=== PATIENT | male | born 1965 | race Caucasian/White ===

== ENCOUNTER → 2018-05-27 14:11 | Outpatient (CLI) | payer MEDICAID, SELFPAY | PROVIDERS: Family Provider Family Medicine; PCP Family Medicine; Visit Provider Family Medicine | DX: R10.9 Unspecified abdominal pain (principal) | CPT/HCPCS: 74019 ==

== ENCOUNTER 2018-08-28 12:11 | Emergency (ER) | payer MEDICAID, SELFPAY ==
[2018-08-28 12:13] VITALS: BP 154/104; PULSE 95; RESP 18; TEMP 37; O2SAT 97; BMI 30.1
--- NOTE | 2018-08-28 12:34 | CT_ITS ---
STUDY: CT ABDOMEN AND PELVIS WITHOUT CONTRAST REASON FOR EXAM: Male, 53 years old. Pain RADIATION DOSAGE (If Supplied By Facility): CTDIvol = ( 16.76 ) mGy, DLP = ( 938.18 ) mGycm TECHNIQUE: Transaxial images were obtained from the dome of the diaphragm to the symphysis pubis without oral contrast, and without intravenous contrast. Sagittal and coronal images were reconstructed. Individualized dose optimization techniques were used for this CT. COMPARISON: June 03, 2017. FINDINGS: Mild bilateral basilar atelectasis. The visualized portions of the heart are within normal limits. Normal liver. Normal gallbladder and extrahepatic biliary system. Normal spleen. Normal pancreas. Normal bilateral adrenal glands. Bilateral hydronephrosis.. Nonobstructive stones are noted up to 9 mm in the left kidney. Slightly prominent ureters without obstructive stone. Normal visualized stomach. Normal small intestine. Normal colon. The appendix is visualized and appears normal. Normal abdominal aorta. Normal inferior vena cava. Normal retroperitoneum. There is a suprapubic catheter extending into the urinary bladder with mild wall thickening. Small fatty umbilical hernia. Mild degenerative vertebral changes. CT/Abdomen/Pelvis without Cont IMPRESSION: Bilateral hydronephrosis. Nonobstructive stones of the left kidney. Slightly prominent ureters without shortness of stone. Suprapubic catheter in place. Mild wall thickening of the urinary bladder. Small fatty umbilical hernia. Electronically Signed: Florentino Wheatley DO at 14:21 EST Tel [phone], Service support ,
[2018-08-28] MEDS: 0.9% Normal Saline 1,000 ML 150 ML IV (12:47)
[2018-08-28 12:59] LABS: Absolute Lymphocyte Count 0.89 X10^3/ul (0.83-4.51); Absolute Neutrophil Count 5.8 X10^3/uL (2.0-7.7); Basophil# 0.02 X10^3/uL; Basophil% 0.3 % (0-1); Eosinophil# 0.09 X10^3/uL; Eosinophils% 1.2 % (0-5); Hematocrit 46.9 % (40-54); Hemoglobin 15.6 g/dl (13.0-16.5); Lymphocyte # 0.89 X10^3/ul (4.0); Lymphocyte % 11.6 % (19-41); Mean Corp Hgb Conc 33.3 g/gl (32-36); Mean Corpuscular Hgb 31.1 pg (27.0-32.0); Mean Corpuscular Volume 93.4 fL (80-94); Mean Platelet Vol. 9.7 fl (6.2-12.0); Monocyte# 0.86 X10^3/uL; Monocyte% 11.2 % (0-10); Neutrophil # 5.83 X10^3/uL (2.7-7.7); Neutrophil % 75.6 % (47-70); POSITIVE COUNT NO; POSITIVE DIFFERENTIAL NO; POSITIVE MORPHOLOGY NO; Platelet Count 199 K/mm3 (150-450); RBC Distribution Width CV 12.9 % (11.6-14.6); RBC Distribution Width SD 43.7 fl (35.1-43.9); Red Blood Count 5.02 M/mm3 (4.6-6.2); White Blood Count 7.7 K/mm3 (4.4-11.0)
[2018-08-28 13:03] LABS: Mucous, Urine 0 SEEN /hpf (<or=2+); Red Blood Cells-Urine 0 SEEN /hpf (0-5); Squamous Epithelial Cells - UA 0 SEEN /hpf (0-5)
[2018-08-28 13:09] LABS: Anion Gap 7 (5-15); BUN 11 mg/dL (7-18); BUN/Creat Ratio 7.7 RATIO (10-20); Calcium,Total 8.5 mg/dL (8.5-10.1); Chloride 104 mmol/L (98-107); Creatinine, Serum 1.42 mg/dL (0.70-1.30); EST Glomerular Filtration Rate 56 mL/min (>60); Est Glom Filt Rate - Afr Amer 67 mL/min (>60); Estimated Creatinine Clearance 62.83 ml/min; Glucose 68 mg/dL (74-106); Potassium 4.1 mmol/L (3.5-5.1); Sodium Level 140 mmol/L (136-145)
[2018-08-28 13:12] LABS: Color, Urine Yellow (Yellow); Glucose, Dipstick 50 mg/dl (Normal); Ketone-Dipstick Negative (Negative); Leukocyte Esterase-Dipstick 500 /ul (Negative); Nitrite-Dipstick Negative (Negative); Occult Blood-Urine 50 /ul (Negative); Protein-Dipstick 30 mg/dl (Negative); Specific Gravity, Urine 1.005 (1.002-1.030); Urine Bilirubin Dipstick Negative (Negative); Urine Clarity Sl. Cloudy (Clear); Urine Urobilinogen Normal (Normal)
[2018-08-28 13:13] LABS: Bacteria 2+ /hpf (None Seen); White Blood Cells 5-10 SEEN /hpf (0-5)
[2018-08-28 13:22] LABS: International Normalized Ratio 2.2; Prothrombin Time (Protime)PT. 24.2 SECONDS (11.7-14.9)
--- NOTE | 2018-08-28 15:05 | ED.VISSUMM ---
- ER Visit Summary Date of Service: 08/28/18 Chief Complaint: [Abdominal pain and pain to the penis] History of Present Illness: The patient is a 53 M [presents the emergency department with complaint of abdominal pain and pain in his penis that has had for months. Patient states that he sees a urologist in [place] and at some point was recommended to him that he have nephrostomy tubes placed in his kidney however being that he is on Coumadin for history of DVT they would have to stop the Coumadin for a time before the surgery. Patient tells me he has had intermittent discomfort in the suprapubic region for months and also complains of intermittent discomfort to the tip of his penis whenever urine drains from his bladder through the suprapubic catheter into his Stoddard bag. Patient not had any fevers. Patient is currently in a fci due to recent stroke.] Physical Examination: [RAJNI-GERALDINE, ALLYSONMI. Cranial nerves II through XII grossly intact. TMs clear. Mucous membranes moist. No adenopathy. Cardiovascular-regular rate and rhythm without murmur or ectopy Lungs-clear to auscultation, chest wall stable without crepitus or subcu emphysema Abdomen-normoactive bowel sounds, soft. Patient has tenderness palpation over the superpubic region that is mild. There is no rebound, rigidity, or perineal signs. Patient has a suprapubic catheter in place. 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 There is no drainage from the penis. There is no erythema or cellulitis noted. Testicles are nontender. There are no hernias palpated. Extremities-intact ?4, normal range of motion, normal pulses, atraumatic] Test Results: [CBC with differential obtained showed a white count of 7.7, hemoglobin 15.6, hematocrit 47, platelets 199. Chemistries unremarkable. BUN was 11 and creatinine 1.42. INR was 2.2. Urinalysis was positive for 500 diet esterase, 5-10 WBCs, +[address] flank showed bilateral hydronephrosis that is mild with multiple stones in the left kidney that are nonobstructive largest of which measures 9 mm.] Emergency Department Course and Treatment: [Patient was medicated with 4 mg of morphine initially and 4 mg of Zofran.] Treatment Plan: [Patient will be discharged back to [facility] with a recommendation to follow-up with urology] Disposition: [Discharged home in stable condition] Impression: [Abdominal pain Penile pain-etiology uncertain] This note was generated with [employer] dictation software. It may contain incorrect words, spelling, and punctuation that were not noted in review of the chart prior to signing ED Disposition - Plan for ED Patient: Chief Complaint: Complaint Referrals: Vasiliy Ramos MD [Primary Care Provider] -
[2018-08-28 15:08] VITALS: BP 150/100; PULSE 89; RESP 18; O2SAT 96
[2018-08-28] MEDS: Ondansetron 4 MG/2 ML Vial IV (15:09)
[2018-08-28] MEDS: Morphine 4 MG/ML Syringe IV (15:09)
--- NOTE | 2018-08-28 15:19 | ED.DCSUM_ITS ---
- ER Visit Summary Date of Service: 08/28/18 Chief Complaint: [Abdominal pain and pain to the penis] History of Present Illness: The patient is a 53 M [presents the emergency department with complaint of abdominal pain and pain in his penis that has had for months. Patient states that he sees a urologist in [place] and at some point was recommended to him that he have nephrostomy tubes placed in his kidney however being that he is on Coumadin for history of DVT they would have to stop the Coumadin for a time before the surgery. Patient tells me he has had intermittent discomfort in the suprapubic region for months and also complains of intermittent discomfort to the tip of his penis whenever urine drains from his bladder through the suprapubic catheter into his Stoddard bag. Patient not had any fevers. Patient is currently in a snf due to recent stroke.] Physical Examination: [RAJNI-GERALDNIE, ALLYSONMI. Cranial nerves II through XII grossly intact. TMs clear. Mucous membranes moist. No adenopathy. Cardiovascular-regular rate and rhythm without murmur or ectopy Lungs-clear to auscultation, chest wall stable without crepitus or subcu emphysema Abdomen-normoactive bowel sounds, soft. Patient has tenderness palpation over the superpubic region that is mild. There is no rebound, rigidity, or perineal signs. Patient has a suprapubic catheter in place. 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 There is no drainage from the penis. There is no erythema or cellulitis noted. Testicles are nontender. There are no hernias palpated. Extremities-intact ?4, normal range of motion, normal pulses, atraumatic] Test Results: [CBC with differential obtained showed a white count of 7.7, hemoglobin 15.6, hematocrit 47, platelets 199. Chemistries unremarkable. BUN was 11 and creatinine 1.42. INR was 2.2. Urinalysis was positive for 500 diet esterase, 5-10 WBCs, +[address] flank showed bilateral hydronephrosis that is mild with multiple stones in the left kidney that are nonobstructive largest of which measures 9 mm.] Emergency Department Course and Treatment: [Patient was medicated with 4 mg of morphine initially and 4 mg of Zofran.] Treatment Plan: [Patient will be discharged back to snf with a recommendation to follow-up with urology] Disposition: [Discharged home in stable condition] Impression: [Abdominal pain Penile pain-etiology uncertain] This note was generated with [employer] dictation software. It may contain incorrect words, spelling, and punctuation that were not noted in review of the chart prior to signing ED Disposition - Plan for ED Patient: Chief Complaint: Complaint Referrals: Vasiliy Ramos MD [Primary Care Provider] -
--- NOTE | 2018-08-28 15:19 | ED.DEP ---
ED Disposition - Plan for ED Patient: Chief Complaint: Complaint Instructions: Abdominal Pain Referrals: Vasiliy Ramos MD [Primary Care Provider] - Additional Instructions: See your Urologist
[2018-08-28 16:00] VITALS: PULSE 90; RESP 18
--- OUTSIDE RECORDS SUMMARY | 2018-10-22 20:11 | XMS RPT_ITS ---
:1965 Author Organization [place] Care Team Providers Name Role Phone ROSSY DAVID MD Attending Unavailable ROLF SCHRADER Primary Care Unavailable ROSSY DAVID MD Attending Unavailable ROLF SCHRADER Primary Care Unavailable Vasiliy Ramos Attending Unavailable Vasiliy Ramos Referring Unavailable Vasiliy Ramos Primary Care Unavailable Vasiliy Ramos Primary Care Unavailable Regina Jason Attending Unavailable PROBLEMS PROBLEMS DATE TYPE CONDITION / CODE ATTENDING STATUS SOURCE 05/27/2018 Unknown R10.9 - Vasiliy Ramos Active Leena Unspecified [facility] abdominal pain / Hospital R10.9(ICD-10) Repository PROCEDURES PROCEDURES No Procedure Records FoundRESULTS RESULTS DISCHARGE INSTRUCTION Observed: 08/28/2018 Status: F Source: LEENA 3:20 PM [facility] REPOSITORY [place] Medical Records Department [address] [place] [address] Discharge Instruction 08/28/18 1519 MR#: [id number] Acct: [id number] Name: LORIE CARVALHO Rep #: [id number] : 1965 53 From: Regina Jason DO PCP: Vasiliy Ramos MD Status: REG ER ED Disposition - Plan for ED Patient: Chief Complaint: Complaint Instructions: Abdominal Pain Referrals: Vasiliy Ramos MD [Primary Care Provider] - Additional Instructions: See your Urologist What to do if you have Problems For any increased pain, shortness of breath, bleeding, nausea or vomiting, chest pain, or any unexpected problems, contact your Primary Care Provider. Call [facility] ([phone]) or report to the closest Emergency Room. Call 911 if necessary. 08/28/18 1520 <Electronically signed by Regina Jason DO> Date Regina Jason DO Cosigner Signature (If Indicated): Date CC: Vasiliy Ramos MD EMERGENCY DEPARTMENT Observed: 08/28/2018 Status: F Source: VALENTINE SUMMARY 3:19 PM [facility] REPOSITORY [place] Medical Records Department [address] [place] [address] Emergency Department Summary 08/28/18 1505 MR#: [id number] Acct: [id number] Name: LORIE CARVALHO Rep #: [id number] : 1965 53 From: Regina Jason DO PCP: Vasiliy Ramos MD Status: REG ER - ER Visit Summary Date of Service: 08/28/18 Chief Complaint: [Abdominal pain and pain to the penis] History of Present Illness: The patient is a 53 M [presents the emergency department with complaint of abdominal pain and pain in his penis that has had for months. Patient states that he sees a urologist in [place] and at some point was recommended to him that he have nephrostomy tubes placed in his kidney however being that he is on Coumadin for history of DVT they would have to stop the Coumadin for a time before the surgery. Patient tells me he has had intermittent discomfort in the suprapubic region for months and also complains of intermittent discomfort to the tip of his penis whenever urine drains from his bladder through the suprapubic catheter into his Stoddard bag. Patient not had any fevers. Patient is currently in a alf due to recent stroke.] Physical Examination: [HEJAVIER-PERRLUIS, ALLYSONMI. Cranial nerves II through XII grossly intact. TMs clear. Mucous membranes moist. No adenopathy. Cardiovascular-regular rate and rhythm without murmur or ectopy Lungs-clear to auscultation, chest wall stable without crepitus or subcu emphysema Abdomen-normoactive bowel sounds, soft. Patient has tenderness palpation over the superpubic region that is mild. There is no rebound, rigidity, or perineal signs. Patient has a suprapubic catheter in place. 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 There is no drainage from the penis. There is no erythema or cellulitis noted. Testicles are nontender. There are no hernias palpated. Extremities-intact 4, normal range of motion, normal pulses, atraumatic] Test Results: [CBC with differential obtained showed a white count of 7.7, hemoglobin 15.6, hematocrit 47, platelets 199. Chemistries unremarkable. BUN was 11 and creatinine 1.42. INR was 2.2. Urinalysis was positive for 500 diet esterase, 5- 10 WBCs, +[address] flank showed bilateral hydronephrosis that is mild with multiple stones in the left kidney that are nonobstructive largest of which measures 9 mm.] Emergency Department Course and Treatment: [Patient was medicated with 4 mg of morphine initially and 4 mg of Zofran.] Treatment Plan: [Patient will be discharged back to alf with a recommendation to follow-up with urology] Disposition: [Discharged home in stable condition] Impression: [Abdominal pain Penile pain-etiology uncertain] This note was generated with Altia dictation software. It may contain incorrect words, spelling, and punctuation that were not noted in review of the chart prior to signing ED Disposition - Plan for ED Patient: Chief Complaint: Complaint Referrals: Vasiliy Ramos MD [Primary Care Provider] - What to do if you have Problems For any increased pain, shortness of breath, bleeding, nausea or vomiting, chest pain, or any unexpected problems, contact your Primary Care Provider. Call [facility] ([phone]) or report to the closest Emergency Room. Call 911 if necessary. 08/28/18 1519 <Electronically signed by Regina Jason DO> Date Regina Jason DO Cosigner Signature (If Indicated): Date CC: Vasiliy Ramos MD URINALYSIS, COMPLETE Collected: 08/28/2018 Status: F Source: VALENTINE 12:58 PM [facility] REPOSITORY Order Comment: How was Urine Obtained? Urine, Pedibag TYPE CODE TESTS RESULT OUT OF RANGE REFERENCE UNITS LAB L400.3000 Yellow COLOR Normal Yellow LAB L400.3050 Clear Normal CLARITY Sl. Cloudy LAB L400.3200 Normal mg/dl High 50 GLUCOSE, UR LAB L400.3300 Negative mg/dL Normal BILIRUBIN URINE Negative LAB L400.3400 Negative mg/dl Normal KETONE UR Negative LAB L400.3465 1.002-1.030 Normal SP.GR. DIPSTX 1.005 LAB L400.3550 5.0 - 8.0 pH UR Normal 7.0 LAB L400.3600 Negative mg/dl High PROT 30 DIPSTX LAB L400.3700 Normal mg/dl Normal UROBILI Normal LAB L400.3750 Negative Normal NITRITE UR Negative LAB L400.3780 Negative /ul High 50 OCCULT BLOOD-UR LAB L400.3800 Negative /ul High LEUK ESTERASE 500 LAB L400.4050 0-5 /hpf WBC Normal 5-10 SEEN LAB L400.4100 0-5 /hpf 0 Normal RBC-UA SEEN LAB L400.4150 0-5 /hpf SQUAM 0 Normal EPI SEEN LAB L400.4300 None Seen /hpf 2+ Normal BACTERIA LAB L400.4350 <or=2+ /hpf 0 Normal MUCUS, URINE SEEN Performed By: #### L400.0001 #### [facility] [address] [place], [address] Observed: 08/28/2018 Status: F Source: VALENTINE CULTURE, URINE 12:58 PM [facility] REPOSITORY Urine Culture ORGANISM 1: Klebsiella oxytoca [place] Count 25,000-50,000 ORGANISM 2: Citrobacter freundii [place] Count 25,000-50,000 ORGANISM 3: Escherichia coli [place] Count 11,000-25,000 Klebsiella oxytoca: REACTION Amoxacillin/Clavulanic Acid $ <=2 S Ampicillin $ >=32 R Ampicillin/Sulbactam $ 8 S Cefazolin $ <=4 S Cefepime $ <=1 S Ceftriaxone $ <=1 S Ciprofloxacin $ <=0.25 S ESBL - Ertapenim $$$ <=0.5 S Gentamicin $ <=1 S Imipenem *NF <=0.25 S Levofloxacin $ <=0.12 S Nitrofurantoin $ 32 S Piperacillin/Tazobactam $$ <=4 S Tobramycin $ <=1 S Trimethoprim/Sulfametho $ <=20 S (NF) indicates non-formulary drug at [facility]. Approval by Infectious Disease Specialist required before non-formulary drugs may be ordered and/or dispensed. Citrobacter freundii: REACTION Amoxacillin/Clavulanic Acid $ 4 R Cefazolin $ >=64 R Cefepime $ <=1 S Ceftriaxone $ <=1 S Ciprofloxacin $ 2 I Ertapenim $$$ <=0.5 S Gentamicin $ >=16 R Imipenem *NF 0.5 S Levofloxacin $ 1 S Nitrofurantoin $ <=16 S Tobramycin $ 8 I Trimethoprim/Sulfametho $ >=320 R (NF) indicates non-formulary drug at [facility]. Approval by Infectious Disease Specialist required before non-formulary drugs may be ordered and/or dispensed. Escherichia coli: REACTION Amoxacillin/Clavulanic Acid $ 16 I Ampicillin $ >=32 R Ampicillin/Sulbactam $ >=32 R Cefazolin $ <=4 S Cefepime $ <=1 S Ceftriaxone $ <=1 S Ciprofloxacin $ <=0.25 S ESBL - Ertapenim $$$ <=0.5 S Gentamicin $ >=16 R Imipenem *NF <=0.25 S Levofloxacin $ 1 S Nitrofurantoin $ <=16 S Piperacillin/Tazobactam $$ <=4 S Tobramycin $ 8 I Trimethoprim/Sulfametho $ <=20 S (NF) indicates non-formulary drug at [facility]. Approval by Infectious Disease Specialist required before non-formulary drugs may be ordered and/or dispensed. Performed By: #### M100.0650 #### [facility] [place], [address] CBC W/DIFF, AUTOMATED Collected: 08/28/2018 Status: F Source: VALENTINE 12:45 PM [facility] REPOSITORY TYPE CODE TESTS RESULT OUT OF RANGE REFERENCE UNITS LAB L100.1000 4.4-11.0 K/mm3 Normal WBC 7.7 LAB L100.1200 4.6-6.2 M/mm3 Normal RBC 5.02 LAB L100.1300 13.0-16.5 g/dl Normal HGB 15.6 LAB L100.1400 40-54 % Normal HCT 46.9 LAB L100.1500 80-94 fL Normal MCV 93.4 LAB L100.1600 27.0-32.0 pg Normal MCH 31.1 LAB L100.1700 32-36 g/gl Normal MCHC 33.3 LAB L100.1810 11.6-14.6 % Normal RDW CV 12.9 LAB L100.1820 35.1-43.9 fl Normal RDW SD 43.7 LAB L100.1900 150-450 K/mm3 Normal PLT 199 LAB L100.2000 6.2-12.0 fl Normal MPV 9.7 LAB L100.2100 47-70 % High NEUT% 75.6 LAB L100.2200 19-41 % Low LY% 11.6 LAB L100.2300 0-10 % High MONO% 11.2 LAB L100.2400 0-5 % Normal EO% 1.2 LAB L100.2500 0-1 % Normal BASO% 0.3 LAB L100.2550 0.0-0.9 % Normal IM GRAN % 0.100 Result Comment: IG% - Immature Granulocytes (promyelocytes, myelocytes and metamyelocytes) > 1% indicates that a LEFT SHIFT is Present. LAB L100.2620 2.0-7.7 X10 3/uL Normal Absolute Neut 5.8 LAB L100.2720 0.83-4.51 X10 3/ul Normal Absolute Lymph 0.89 Performed By: #### L100.0100 #### [facility] [address] [place], [place], [address] BASIC METABOLIC Collected: 08/28/2018 Status: F Source: VALENTINE PROFILE (BMP) 12:45 PM [facility] REPOSITORY TYPE CODE TESTS RESULT OUT OF RANGE REFERENCE UNITS LAB L501.0100 74-106 mg/dL Low GLU 68 Result Comment: Please note revised GLUCOSE reference range effective 2017. LAB L501.1000 7-18 mg/dL Normal BUN 11 LAB L501.1100 0.70-1.30 mg/dL High CREAT,SERUM 1.42 Result Comment: The validity of the calculated GFR AND GFRAA in patients over 70 years has not been determined. Clinical correlation is essential. LAB L501.1110 >60 mL/min Low EST GFR 56 Result Comment: Non- GFR Calc LAB L501.1115 >60 mL/min Normal EST GFR - AA 67 Result Comment: GFR Calc LAB L501.1255 ml/min Normal Estimated CRCL 62.83 LAB L501.1300 10-20 RATIO Low BUN/CRE 7.7 LAB L501.2200 8.5-10 mg/dL Normal .1 CA 8.5 LAB L501.5300 136-14 mmol/L Normal 5 NA 140 LAB L501.5600 3.5-5. mmol/L Normal 1 K 4.1 Result Comment: Moderate Hemolysis, Result may be falsely increased. LAB L501.5900 98-107 mmol/L Normal CL 104 LAB L501.6100 21.0-32.0 mmol/L Normal CO2 29.0 LAB L501.6200 5-15 Normal 7 GAP Performed By: #### L500.2500 #### [facility] [address] [place], [address] PROTHROMBIN TIME W/INR Collected: 08/28/2018 Status: F Source: VALENTINE 12:45 PM [facility] REPOSITORY TYPE CODE TESTS RESULT OUT OF RANGE REFERENCE UNITS LAB L300.4150 11.7-14.9 SECONDS High PROTIME 24.2 LAB L300.4200 Normal INR 2.2 Performed By: #### L300.3900 #### [facility] [address] [place], [address] ABDOMEN/PELVIS WITHOUT Observed: 08/28/2018 Status: F Source: LEENA CONT 12:35 PM [facility] REPOSITORY [place] Imaging Services [address] [place] [address] Abdomen/Pelvis without Cont MR#: [id number] Acct: [id number] Name: LORIE CARVALHO Rep #: [id number] : 1965 M 53 From: Florentino Wheatley DO PCP: Vasiliy Ramos MD Status: REG ER Study: Abdomen/Pelvis without Cont Date of Exam: 08/28/18 Exam# [id number] Ordering Dr: Regina Jason DO STUDY: CT ABDOMEN AND PELVIS WITHOUT CONTRAST REASON FOR EXAM: Male, 53 years old. Pain RADIATION DOSAGE (If Supplied By Facility): CTDIvol = ( 16.76 ) mGy, DLP = ( 938.18 ) mGycm TECHNIQUE: Transaxial images were obtained from the dome of the diaphragm to the symphysis pubis without oral contrast, and without intravenous contrast. Sagittal and coronal images were reconstructed. Individualized dose optimization techniques were used for this CT. COMPARISON: June 03, 2017. FINDINGS: Mild bilateral basilar atelectasis. The visualized portions of the heart are within normal limits. Normal liver. Normal gallbladder and extrahepatic biliary system. Normal spleen. Normal pancreas. Normal bilateral adrenal glands. Bilateral hydronephrosis.. Nonobstructive stones are noted up to 9 mm in the left kidney. Slightly prominent ureters without obstructive stone. Normal visualized stomach. Normal small intestine. Normal colon. The appendix is visualized and appears normal. Normal abdominal aorta. Normal inferior vena cava. Normal retroperitoneum. There is a suprapubic catheter extending into the urinary bladder with mild wall thickening. Small fatty umbilical hernia. Mild degenerative vertebral changes. CT/Abdomen/Pelvis without Cont IMPRESSION: Bilateral hydronephrosis. Nonobstructive stones of the left kidney. Slightly prominent ureters without shortness of stone. Suprapubic catheter in place. Mild wall thickening of the urinary bladder. Small fatty umbilical hernia. Electronically Signed: Florentino Wheatley DO at 14:21 EST Tel [phone], Service support , CC: Vasiliy Ramos MD; Regina Jason DO Survey Engineer: Signed XR ABDOMEN AP Observed: 08/02/2018 Status: F Source: Heavy 8:00 AM [facility] REPOSITORY ORIGINAL Supine abdomen one view HISTORY: Follow-up kidney stone COMPARISON: CT scan 07/15/2018 No definite RIGHT nephrolithiasis is present. There is left- sided nephrolithiasis. A 2 mm stone is present at the LEFT upper pole and at the LEFT lower pole there is a 3 mm stone. There is an oval calci fication measuring 12 mm in maximum dimension probably at the LEFT ureteropelvic junction. No other urinary tract calcification is evident. Interpreted By: Mansoor Reynolds MD Preliminary Report By: Mansoor Reynolds MD Electronically Signed By: Mansoor Reynolds MD Dictated Date: 08/02/2018 8:37:05 AM Prelim Date: 08/02/2018 8:37:05 AM Sign Date: 08/02/2018 8:38:[address] ABDOMEN/PELVIS W/O Observed: 07/15/2018 Status: F Source: PIERRE CONTRAST 11:00 AM [facility] REPOSITORY ORIGINAL CT ABDOMEN/PELVIS W/O CONTRAST CLINICAL STATEMENT: HX OF KIDNEY STONES, UROSTOMY COMPARISON: None FINDINGS:Today's examination was performed a noncontrast enhanced CT of the abdomen and pelvis. There are no prior imaging studies available for comparison. Minimal inclusion of the posterior lung bases is noncontributory. There is patchy atelectasis along the lung bases bilaterally particularly along the dome of the RIGHT hemidiaphragm. Liver and spleen are unremarkable. The pancreas demonstrates no contributory findings. Gallbladder is present. The adrenal glands are unremarkable. There are intrarenal calculi present on the LEFT. There is also, a large ureteropelvic junction calcification on the LEFT measuring 1 cm in AP diameter. There is asymmetric atrophic change to the LEFT kidney. Both kidneys demonstrate lobulated contours with possible small cortical cystic changes in addition to a large pos terior RIGHT cortical cyst which measures 4.6 cm. No pathologically enlarged upper abdominal lymph nodes are noted. There is no retroperitoneal adenopathy. A few scattered retroperitoneal lymph nodes not pathologically enlarged by CT criteria are noted . The inferior vena cava is abnormal. There is a relatively unremarkable appearing proximal inferior vena cava at the level of the liver which becomes quite small and somewhat tortuous at the level of t he renal veins. Distal to the renal veins, there is no normal appearing inferior vena cava. The confluence of the renal veins is contiguous with a small retroperitoneal venous structure resulting from t he union of the common iliac veins posterior to the RIGHT common iliac artery on image 68. In a cephalad fashion, surrounding small collateral venous structures are present. This small confluence of the common iliac veins unites with the confluence of the renal veins on image 38. This likely represents a chronic obstruction or developmental anomaly. There are some venous collateral vessels present in the subcutaneous tissues likely as a result of this finding. No disproportionate bowel dilatation to suggest a focal obstruction is identified. In the pelvis, a suprapubic catheter with collapse of the bladder is noted. No pelvic adenopathy is confirmed. There is no free fluid in the pelvis. The osseous structures demonstrate no acute contributory findings. There are diffuse degenerative changes present. IMPRESSION: 1. LEFT intrarenal calculi and ureteral pelvic junction calculus. Long-standing obstruction at the ureteropelvic junction is suspected with associated atrophic change to the LEFT kidney. 2. Incidental findings as detailed above. This includes abnormalities related to the venous structures of the abdomen specifically the inferior vena cava and renal veins. This exam was performed according to our departmental dose optimization program, and includes the following measures where applicable: automated exposure control, adjustment of the mAs and/or kVp accord ing to patient size and/or exam, and an iterative reconstruction algorithm. Interpreted By: Dariana Fagan MD Preliminary Report By: Dariana Fagan MD Electronically Signed By: Dariana Fagan MD Dictated Date: 07/15/2018 11:13:30 AM Prelim Date: 07/15/2018 11:13:30 AM Sign Date: 07/15/2018 11:35:02 AM JUANA JOHNSON DECLARRY Observed: 05/27/2018 Status: F Source: LEENA AND/OR ERECT 2:17 PM [facility] [place] Imaging Services [address] [place] [address] Abd Inc Decub and/or Erect MR#: [id number] Acct: [id number] Name: LORIE CARVALHO Rep #: [id number] : 1965 M 52 From: Warren Moctezuma MD PCP: Vasiliy Ramos MD Status: REG CLI Study: Abd Inc Decub and/or Erect Date of Exam: 05/27/18 Exam# [id number] Ordering Dr: Vasiliy Ramos MD STUDY: X-RAY - ABDOMEN/PELVIS REASON FOR EXAM: Male, 52 years old. Abdominal pain and bloating. Patient states he is retaining fluid. TECHNIQUE: AP supine and upright views of the abdomen and pelvis on 4 films. COMPARISON: Noncontrast CT abdomen and pelvis June 03, 2017 FINDINGS: There is minor subsegmental atelectasis in the inferior left base of the diaphragm. There is an unremarkable bowel gas pattern. There is no demonstrated free abdominal air. Left nephrolithiasis again noted. The largest stone, measuring nearly 1 cm in greatest diameter, now projects near the expected position of the left ureteropelvic junction. The visualized liver and spleen are grossly normal in size and morphology. Normal soft tissue structures. Normal visualized osseous structures. RAD/Abd Inc Decub and/or Erect IMPRESSION: 1. Left nephrolithiasis. The largest stone now projects at the expected position of the left ureteropelvic junction. 2. Nonspecific bowel gas pattern. No free gas. Electronically Signed: Arash Moctezuma MD at 21:51 EDT , Service support , CC: Vasiliy Ramos MD Survey Engineer: Signed ALLERGIES ALLERGIES DATE TYPE / CODE NAME / CODE REACTION SEVERITY SOURCE 08/28/2018 Drug No Known Unknown [facility] Allergy/4160 Allergies/F00 Hospital 47925(SNOMED 7007799(RXNOR Repository CT) M) ENCOUNTERS ENCOUNTERS ADMIT/DISCHARGE ACCOUNT NUMBER ADMITTING ENCOUNTER LOCATION SOURCE CLASS 08/28/2018/08/28/20 [id number] Emergency [address] ding:ED Repository 08/02/2018/08/02/20 [id number] Ambulatory [place] [address] ing:[facility] Repository 07/15/2018/07/15/20 [id number] Ambulatory [address] ding:[facility] Repository 05/27/[id number] [facility] ding:MTRAD Repository PAYERS PAYERS ENCOUNTER GUARANTOR PAYER SUBSCRIBER SOURCE 08/28/2018 [facility] [id number] Insurance[facility] Number: [id number] [id number] Repository [address]Tez: Date:2018-08-28 () 08/28/2018 [facility]SELF [facility] Number: Effective Repository Date:2018-08-28 08/02/2018 [facility] DICKENDOB: Insurance:MEDICAID OF [facility]: [facility] [id number] Repository [facility] Number: [address] [place], [place] [id number] [place], [place] [address]Dxc: (303) Date:2018-07-28 [id number]: () [id number] [phone] Name:MIGUEL Meadows ()Tel: [phone], [place] [phone] () [phone]: 07/15/2018 [facility] DICKENDOB: Insurance:MEDICAID OF DICKENDOB: [facility] Number: [id number] Repository [facility] [id number] [address] [place], [place] Date:2018-07-08 - [facility], [place] [address]Gog: [phone] [phone]: Name:MIGUEL Meadows [id number] ()Tel: [phone], [place] (HP) (WP) [phone]: [phone] 05/27/2018 LORIE D Primary [id number] Insurance:MEDICAIDPol DICKENDOB: [facility] BLANCAVDAPT icy Number: [id number] [id number] Repository [address]Zhc: Date:2018-05-27 () 05/27/2018 Secondary NOT GIVENNATHANIEL [address] Insurance:SELF PAY [facility] Number: Effective Repository Date:2018-05-27
== END 2018-08-28 16:01 | disposition home or self-care (01) ==
PROVIDERS: Emergency Provider Emergency Medicine; Family Provider Family Medicine; PCP Family Medicine
DX: R10.30 Lower abdominal pain, unspecified (principal); N48.89 Other specified disorders of penis; I10 Essential (primary) hypertension; Z86.718 Personal history of other venous thrombosis and embolism; Z86.73 Personal history of transient ischemic attack (TIA), and cerebral infarction without residual deficits; Z87.442 Personal history of urinary calculi; Z79.01 Long term (current) use of anticoagulants; Z79.51 Long term (current) use of inhaled steroids; Z79.891 Long term (current) use of opiate analgesic; Z79.899 Other long term (current) drug therapy
CPT/HCPCS: 74176; 80048; 81001; 85025; 85610; 87077; 87086; 87088; 87186; 96361; 96374; 96375; 99284; J7030; J2405

== ENCOUNTER → 2018-10-04 10:46 | Outpatient (CLI) | payer MEDICAID, SELFPAY ==
--- NOTE | 2018-10-04 10:49 | ART_ITS ---
Reason For Study: Ulcer Left Segmental Pressures Left brachial= 126mmHg. Left posterior tibial artery = 149mmHg. Left dorsalis pedis artery = 145mmHg. The left dorsalis pedis waveforms are triphasic. The left posterior tibial artery waveforms are triphasic. Right Segmental Pressures Right brachial= 119mmHg. Right posterior tibial artery = 145mmHg. Right dorsalis pedis artery = 143mmHg. The right dorsalis pedis waveforms are triphasic. The right posterior tibial artery waveforms are triphasic. Indices The right ankle brachial index by the dorsalis pedis is 1.1. The right ankle brachial index by the posterior tibial artery is 1.2. The left ankle brachial index by the dorsalis pedis is 1.2. The left ankle brachial index by the posterior tibial artery is 1.2. Interpretation Summary Triphasic waveforms are noted at ankle level bilaterally. Resting ankle-brachial indices appear bilaterally normal. There is no evidence of significant arterial occlusive disease. Ordering Physician: Vasiliy Ramos Referring Physician: Vasiliy Ramos Performed By: Stephanie Aguilar RVT
== END ==
PROVIDERS: Family Provider Family Medicine; PCP Family Medicine; Referring Provider Family Medicine; Visit Provider Family Medicine
DX: L97.929 Non-pressure chronic ulcer of unspecified part of left lower leg with unspecified severity (principal)
CPT/HCPCS: 93922

== ENCOUNTER 2019-06-05 10:08 | Inpatient (IN) | payer MEDICAID, SELFPAY ==
[2019-06-05] VITALS (43 sets, daily range): BP systolic 72–134; BP diastolic 49–99; PULSE 79–133; RESP 18–36; TEMP 36.9–38.2; O2SAT 92–98; BMI 32.3; BMI 31.7
--- NOTE | 2019-06-05 10:28 | RAD_ITS ---
STUDY: X-RAY CHEST REASON FOR EXAM: Male, 53 years old. Fever and sepsis. TECHNIQUE: Single AP portable view of the chest. COMPARISON: 04/29/2017. FINDINGS: There are hypoventilatory and mild atelectatic changes in lung bases. No focal infiltrate is seen. There is no demonstrated pleural abnormality. Normal size heart. Normal mediastinum and coco. Normal visualized pulmonary arteries. Normal visualized aortic arch and descending thoracic aorta. The bony structures are unchanged. There is no demonstrated abnormality of the visualized soft tissue structures of the upper abdomen. RAD/Chest 1 View (Portable) IMPRESSION: Hypoventilatory and mild atelectatic changes in the lung bases. Electronically Signed: Freddy Santillan MD at 11:10 EDT Tel , Service support ,
--- NOTE | 2019-06-05 10:28 | EKG12_ITS ---
Test Reason : SEPTIC Blood Pressure : / mmHG Vent. Rate : 110 BPM Atrial Rate : 110 BPM P-R Int : 146 ms QRS Dur : 066 ms QT Int : 318 ms P-R-T Axes : 033 000 007 degrees QTc Int : 430 ms Sinus tachycardia Otherwise normal ECG Confirmed by ANIBAL MONTANO, LUPIS ([id number]), editorial manager MILAN CARDENAS ([id number]) on 06/07/2019 9:28:27 AM Referred By: FARAZ Confirmed By:LUPIS BARNETT MD
--- NOTE | 2019-06-05 10:30 | ED.VIS.GEN ---
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 Onset: Today Narrative: He is presenting from assisted living for fever and tachycardia. Patient does have a history of urosepsis. Patient states he has been feeling ill today. Patient had a temperature of 102 per perioperative nurse report. Patient states he feels weak and lightheaded. He denies any other complaints at this time. He notes he does have chronic neuropathy of his lower extremities which is unchanged currently. He has no new numbness or tingling. He denies any chest pain or difficulty breathing. He denies any other complaints at this time. Patient does have history of stroke and is on Coumadin. Past Medical History - Allergies and Home Meds Allergies/Adverse Reactions: Allergies No Known Allergies Allergy (Verified 06/05/19 10:11) Past Medical History: - - Hypertension, hyperlipidemia, history of stroke, history of DVT Surgical History: - - Interventions for renal stones, right inguinal hernia repair, suprapubic catheter. Lives: [facility] Smoking Status: Never smoker - Family History Maternal Family History: Reports: Cancer - Mother with breast cancer history. Paternal Family History: Reports: No pertinent history Review of Systems General: Reports: Chills, Fever, - - Dizziness Gastrointestinal: Reports: Nausea Genitourinary: Reports: - - Suprapubic Stoddard catheter. Denies: Dysuria Musculoskeletal: Reports: Extremity Pain - Chronic lower extremity leg pain Neurological: Denies: Numbness Physical Exam Vital Signs/Narrative: Vital Signs Temp Pulse Resp BP Pulse Ox 06/05/19 10:11 99.3 F H 133 H 33 H 91/66 93 Inital Vital Signs reviewed: Yes General: Well nourished, Well developed, - - Sick appearing Head: Normocephalic, Atraumatic Eyes: Perrl, EOMI ENT: Dry mucous membranes Neck: Supple, No lymphadenopathy Cardiovascular: Regular rhythm, No murmurs, Tachycardia Respiratory: No distress, CTA bilaterally, - - Tachypneic Abdomen: Soft, Nontender, Nondistended, - - Prepubic Stoddard catheter in place, small amount of urine in leg bag Back: Nontender Extremities: Nontender, No edema Skin: No rash, - - Rest, hot to touch Diagnostic/Tx/Re-eval Chest X-Ray - ED: 1 View, Read by ED Physician, Read by Radiologist, No Acute Disease Clinical Impression(s) from Imaging Studies Chest X-Ray 06/05/19 10:28 IMPRESSION: Hypoventilatory and mild atelectatic changes in the lung bases. Electronically Signed: Freddy Santillan MD at 11:10 EDT Tel , Service support , Laboratory Data 06/05/19 06/05/19 06/05/19 10:20 10:20 10:20 WBC 15.4 H RBC 5.34 Hgb 16.7 H Hct 50.5 MCV 94.6 H MCH 31.3 MCHC 33.1 RDW Std Deviation 42.8 RDW Coeff of Brianna 12.4 Plt Count 126 L MPV 9.7 Immature Gran % (Auto) 1.200 H Neut % (Auto) 93.6 H Lymph % (Auto) 1.7 L [place] % (Auto) 2.5 Eos % (Auto) 0.7 Baso % (Auto) 0.3 Absolute Neuts (auto) 14.4 H Absolute Lymphs (auto) 0.26 L Nucleated RBC % 0.1 Differential Comment SCANNED PT 26.1 H INR 2.4 APTT 33.5 Sodium 138 Potassium 4.2 Chloride 101 Carbon Dioxide 22.0 Anion Gap 15 BUN 16 Creatinine 2.40 H Estim Creat Clear Calc 36.00 Est GFR (MDRD) Af Amer 37 L Est GFR (MDRD) Non-Af 30 L BUN/Creatinine Ratio 6.7 L Glucose 98 Lactic Acid Calcium 8.7 Total Bilirubin 0.70 AST 31 ALT 43 Alkaline Phosphatase 92 Total Protein 7.7 Albumin 3.6 Globulin 4.1 Albumin/Globulin Ratio 0.9 Urine Color Urine Clarity Urine pH Ur Specific [place] Urine Protein Urine Glucose (UA) Urine Ketones Urine Occult Blood Urine Nitrite Urine Bilirubin Urine Urobilinogen Ur Leukocyte Esterase Urine RBC Urine WBC Ur Squamous Epith Cells Urine Bacteria Urine Mucus 06/05/19 06/05/19 10:20 12:20 WBC RBC Hgb Hct MCV MCH MCHC RDW Std Deviation RDW Coeff of Brianna Plt Count MPV Immature Gran % (Auto) Neut % (Auto) Lymph % (Auto) [place] % (Auto) Eos % (Auto) Baso % (Auto) Absolute Neuts (auto) Absolute Lymphs (auto) Nucleated RBC % Differential Comment PT INR APTT Sodium Potassium Chloride Carbon Dioxide Anion Gap BUN Creatinine Estim Creat Clear Calc Est GFR (MDRD) Af Amer Est GFR (MDRD) Non-Af BUN/Creatinine Ratio Glucose Lactic Acid 5.7 H* Calcium Total Bilirubin AST ALT Alkaline Phosphatase Total Protein Albumin Globulin Albumin/Globulin Ratio Urine Color Yellow Urine Clarity Cloudy Urine pH 5.0 Ur Specific [place] 1.010 Urine Protein 30 H Urine Glucose (UA) Normal Urine Ketones Negative Urine Occult Blood 250 H Urine Nitrite Positive H Urine Bilirubin Negative Urine Urobilinogen Normal Ur Leukocyte Esterase 500 H Urine RBC 0 SEEN Urine WBC 25-50 SEEN Ur Squamous Epith Cells 0 SEEN Urine Bacteria 2+ Urine Mucus 0 SEEN Diagnostic Data Chest X-Ray 06/05/19 10:28 IMPRESSION: Hypoventilatory and mild atelectatic changes in the lung bases. Electronically Signed: Freddy Santillan MD at 11:10 EDT Tel , Service support , - Rhythm Strip Rhythm Strip: Sinus Tach Rate: 110 - EKG Initial EKG Interpretation: Sinus Tachycardia, - - Normal ST segments - Medical Decision Making Patient is evaluated for fever and tachycardia noticed at nursing facility. Patient arrives he is tachycardic and hypotensive. He is given aggressive fluid resuscitation with 2 L of IV fluids. I suspect patient has an infection as a source. Sepsis protocol is followed. Patient does have a lactate greater than 5. He is in septic shock per protocol. Patient is fluid responsive. He is given a total of 3 L which is his 30 cc/kg total. There is a delayed collecting the urine as he is not having any output. Patient does start to complain of significant abdominal pain and feeling short of breath. Patient lung sounds are clear and he does not have any wheezing. He does not have crackles I am not concerned for fluid overload at this time. On reevaluation patient is having acute urine retention. His suprapubic Stoddard catheter is replaced by myself. Patient has immediate drainage of 600 cc of urine and improvement of the symptoms. Urinalysis is consistent with infection. Patient is started on IV Rocephin. He also has acute kidney injury found on his labs. Patient will be admitted to the ICU for further evaluation and monitoring. He is agreeable with this. Patient is admitted to Dr. Villafana. He is stabilized in the emergency room. - Critical Care Time Critical care time (excluding procedures): 30-74 minutes, Performing Direct Patient Care at Bedside - Patient required frequent reevaluation for blood pressure and large fluid volume resuscitation. Required ultimate admission to ICU. ED Disposition - Plan for ED Patient: Disposition: Acute Care Hospital [facility] Diagnosis: Septic shock, Acute complicated UTI, Acute kidney injury superimposed on CKD, Urinary catheter dysfunction
[2019-06-05] MEDS: Acetaminophen 325 MG Tablet 650 MG PO (10:40)
[2019-06-05 10:44] LABS: Absolute Lymphocyte Count 0.26 X10^3/uL (0.83-4.51); Absolute Neutrophil Count 14.4 X10^3/uL (2.0-7.7); Basophil# 0.05 X10^3/uL; Basophil% 0.3 % (0-1); Eosinophil# 0.11 X10^3/uL; Eosinophils% 0.7 % (0-5); Hematocrit 50.5 % (40-54); Hemoglobin 16.7 g/dL (13.0-16.5); Lymphocyte # 0.26 X10^3/ul (4.0); Lymphocyte % 1.7 % (19-41); Mean Corp Hgb Conc 33.1 g/dL (32-36); Mean Corpuscular Hgb 31.3 pg (27.0-32.0); Mean Corpuscular Volume 94.6 fL (80-94); Mean Platelet Vol. 9.7 fl (6.2-12.0); Monocyte# 0.39 X10^3/uL; Monocyte% 2.5 % (0-10); NRBC Flagged by Analyzer 0.1 % (0-5); Neutrophil # 14.43 X10^3/uL (2.7-7.7); Neutrophil % 93.6 % (47-70); POSITIVE DIFFERENTIAL YES; POSITIVE MORPHOLOGY YES; Platelet Count 126 K/mm3 (150-450); RBC Distribution Width CV 12.4 % (11.6-14.6); RBC Distribution Width SD 42.8 fl (35.1-43.9); Red Blood Count 5.34 M/mm3 (4.6-6.2); White Blood Count 15.4 K/mm3 (4.4-11.0)
[2019-06-05 10:50] LABS: Differential Indicated SCAN CRITERIA MET
[2019-06-05] MEDS: 0.9% Normal Saline 1,000 ML 999 ML IV ×3 (10:51→12:04)
[2019-06-05 10:53] LABS: International Normalized Ratio 2.4; Prothrombin Time (Protime)PT. 26.1 SECONDS (11.7-14.9)
[2019-06-05 10:54] LABS: Partial Thromboplast Time 33.5 Seconds (24.1-36.2)
[2019-06-05 11:01] LABS: ALB/GLOB Ratio 0.9 RATIO (0.9-2.4); AST(SGOT) 31 U/L (15-37); Alanine Aminotransfer ALT/SGPT 43 U/L (16-61); Albumin, Serum 3.6 g/dL (3.2-5.0); Alkaline Phosphatase 92 U/L (45-117); Anion Gap 15 (5-15); BUN 16 mg/dL (7-18); BUN/Creat Ratio 6.7 RATIO (10-20); Calcium,Total 8.7 mg/dL (8.5-10.1); Chloride 101 mmol/L (98-107); EST Glomerular Filtration Rate 30 mL/min (>60); Est Glom Filt Rate - Afr Amer 37 mL/min (>60); Globulin 4.1 g/dL (2.2-4.2); Glucose 98 mg/dL (74-106); Potassium 4.2 mmol/L (3.5-5.1); Protein, Total 7.7 g/dL (6.4-8.2); Sodium Level 138 mmol/L (136-145)
[2019-06-05 11:02] LABS: Differential Comment SCANNED
--- NOTE | 2019-06-05 11:02 | ED.RN ---
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 LEG BAG CHANGED TO 2000CC BAG.
[2019-06-05 11:06] LABS: Lactic Acid 5.7 mmol/L (0.4-2.0)
--- NOTE | 2019-06-05 11:06 | ED.RN ---
lactic 5.7 called from [address] lab dr lugo aware
[2019-06-05] MEDS: Ceftriaxone 1 GM/50 ML BAG IV (11:31)
--- NOTE | 2019-06-05 12:25 | ED.RN ---
1215 MD AT BEDSIDE EVALUATING PT. MD CHANGED SUPRA PUBIC CATH SYSTEM.
[2019-06-05] MEDS: HYDROcodone Bitartrate/Apap 5/325 Tablet PO (12:37)
[2019-06-05 12:39] LABS: Mucous, Urine 0 SEEN /hpf (<or=2+); Red Blood Cells-Urine 0 SEEN /hpf (0-5); Squamous Epithelial Cells - UA 0 SEEN /hpf (0-5)
[2019-06-05 12:45] LABS: Color, Urine Yellow (Yellow); Glucose, Dipstick Normal (Normal); Ketone-Dipstick Negative (Negative); Leukocyte Esterase-Dipstick 500 /ul (Negative); Nitrite-Dipstick Positive (Negative); Occult Blood-Urine 250 /ul (Negative); Protein-Dipstick 30 mg/dl (Negative); Urine Bilirubin Dipstick Negative (Negative); Urine Clarity Cloudy (Clear); Urine Urobilinogen Normal (Normal)
[2019-06-05 13:04] LABS: Bacteria 2+ /hpf (None Seen); White Blood Cells 25-50 SEEN /hpf (0-5)
--- NOTE | 2019-06-05 13:27 | PCM.HP.STD ---
Problem List (1) Acute complicated UTI Status: Acute (2) Acute kidney injury superimposed on CKD Status: Acute (3) Septic shock Status: Acute (4) Suprapubic catheter Status: Chronic (5) BPH (benign prostatic hyperplasia) Status: Chronic Qualifiers: Lower urinary tract symptom presence: unspecified whether lower urinary tract symptoms present Qualified Code(s): N40.0 - Benign prostatic hyperplasia without lower urinary tract symptoms (6) History of DVT (deep vein thrombosis) Status: Chronic (7) CVA (cerebral vascular accident) Status: Chronic Qualifiers: CVA mechanism: unspecified Qualified Code(s): I63.9 - Cerebral infarction, unspecified (8) HLD (hyperlipidemia) Status: Chronic Qualifiers: Hyperlipidemia type: unspecified Qualified Code(s): E78.5 - Hyperlipidemia, unspecified (9) HTN (hypertension) Status: Chronic Qualifiers: Hypertension type: essential hypertension Qualified Code(s): I10 - Essential (primary) hypertension History of Present Illness Date of Admission: 06/05/19 Chief Complaint: Fever, tachycardia. The patient is a 53 year old M with past medical history as mentioned above presented to the emergency room from the long term because of fever and tachycardia. Reportedly, patient had a fever of 102 Fahrenheit by paramedics. Patient reported a specific symptoms being feeling sick and ill as well as mildly dizzy when he arrived. He denied abdominal pain, nausea or vomiting. He denies constipation or diarrhea. He denies chest pain or shortness of breath. He denied cough or sputum production. He has history of hypertension which has been under control with metoprolol. He has history of DVT and he has been on Coumadin and his INR stable. He has history of stroke with resultant minimal dysarthria, no motor deficit and he has been on statins and Coumadin as well. He has chronic indwelling Stoddard catheter after he had a stroke and he has been admitted for severe sepsis due to acute complicated UTI in the past and in May,, he had urine culture that was positive for Pseudomonas aeruginosa. Upon arrival to ER, patient was hypotensive, tachycardic, tachypneic and pulse ox was 93% on room air. He received bolus of IV fluids of 3 L and his blood pressure improved as well as heart rate. In the emergency department, patient was retaining urine and there was no urine in the urine bag. Suprapubic catheter was changed and urine drained. His routine blood work was remarkable for leukocytosis with neutrophilia, creatinine of 2.40. LFT was normal. Lactic acid was 5.7. Urinalysis revealed cloudy urine, positive for nitrite and leukocyte esterase, there was 25-50 WBCs and 2+ bacteria. Chest x-ray showed no acute infiltrate or consolidation. He is being admitted for septic shock secondary to acute complicated urinary tract infection in the setting of chronic indwelling suprapubic catheter and also found to have acute kidney injury on top of stage III chronic kidney disease. Past Medical History Past Medical History (Chronic Problems): Chronic Problems Suprapubic catheter (Chronic) Bladder dysfunction (Chronic) BPH (benign prostatic hyperplasia) (Chronic) History of DVT (deep vein thrombosis) (Chronic) CVA (cerebral vascular accident) (Chronic) HLD (hyperlipidemia) (Chronic) HTN (hypertension) (Chronic) Obesity (BMI 30.0-34.9) (Chronic) Allergies No Known Allergies Allergy (Verified 06/05/19 10:11) Home Medications: Ambulatory Orders Medication Instructions Recorded Acetaminophen 2 tab PO Q4H PRN PRN 04/29/17 Atorvastatin Calcium [Lipitor] 10 mg PO QHS 04/29/17 Cholecalciferol (Vitamin D3) 5,000 unit PO DAILY 04/29/17 [Vitamin D3] Guaifenesin [Guaifenesin ER] 600 mg PO BID 04/29/17 Loratadine 10 mg PO DAILY 04/29/17 Magnesium Hydroxide [Milk Of 30 ml PO DAILY PRN PRN 04/29/17 Magnesia] Metoprolol Tartrate 25 mg PO BID 04/29/17 Ondansetron [Zofran Odt] 4 mg PO Q8H PRN PRN 04/29/17 Warfarin [Coumadin] 2 mg PO SUMOTUTHFRSA 04/29/17 Docusate Sodium [Colace] 200 mg PO BID PRN PRN #1 capsule 05/05/17 Hydrocodone Bitart/Apap 5-325 1 tablet PO Q6H PRN PRN #10 05/05/17 [[place] 5/325] Albuterol Aerosols [Ventolin 2.5 mg INHALATION Q2H PRN PRN 06/03/17 Aerosols] Mag Hydrox/Aluminum Hyd/Simeth 30 ml PO Q4H PRN PRN 06/03/17 [Antacid Liquid] Warfarin [Coumadin ([facility])] 3 mg PO WE 06/05/19 Surgical History: - - Interventions for renal stones, right inguinal hernia repair, suprapubic catheter. Psychiatric History: No pertinent psych hx Lives: [facility] Smoking Status: Never smoker Alcohol: None Drugs: None - *Family History Maternal History Items: Cancer - Mother with breast cancer history. Paternal History Items: No pertinent history Review of Systems Constitutional: Reports: Fever, Weakness. Denies: Anorexia, Chills Eyes: Denies: Blurred vision, Double vision, Drainage, Redness HEENT: Denies: Difficulty Hearing, Ear Pain, Eye Pain, Nasal Congestion, Sore Throat Cardiovascular: Reports: Light Headedness. Denies: Chest Pain, Chest Pressure, Chest Tightness, Palpitations, Paroxysmal Noc. Dyspnea, Syncope Respiratory: Denies: Cough, Pleuritic Pain, Shortness of Breath, Sputum production, Wheezing Gastrointestinal: Denies: Abdominal Pain, Constipation, Diarrhea, Nausea, Vomiting Genitourinary: Denies: Dysuria, Frequency, Hematuria Musculoskeletal: Denies: Arm Pain, Back Pain, Foot Pain Skin: Denies: Dryness, Rash Neurological: Denies: Balance problems, Double vision, Change in Speech, Confusion, Headaches, Incoordination, Numbness Psychiatric: Denies: Anxiety, Depression Endocrine: Denies: Change in Body Habitus, Polydipsia, Polyuria VTE Information - Inpt Only VTE Present on Admission: No VTE Mechan Device Prophylaxis: None VTE Pharm Prophylaxis ordered?: No Patient Problems: Active and Suspected Problems Acute complicated UTI (Acute) Acute kidney injury superimposed on CKD (Acute) Septic shock (Acute) - Physical Exam General: Alert, Oriented x3, Cooperative, No apparent distress HEENT: Atraumatic, PERRLA, EOMI, Normocephalic Oral: Moist Mucosa, No Gingival or Mucosal Lesions/ Ulcerations Neck: Supple, No JVD, Negative Carotid Bruits, Trachea Midline, Thyroid Normal Size and Texture Lungs: Clear to auscultation, Normal air movement, No rhonchi, No wheeze, No rales, Diminished Cardiovascular: Regular rate, Regular Rhythm, Normal S1, Normal S2, PMI Normal, Tachycardic Abdomen: Bowel Sounds Present, Soft, Non Tender, Non-Distended, No Hepato-splenomegaly, - - Suprapubic catheter in place. Extremities: No clubbing, No cyanosis, Edema - Trace edema, stasis dermatitis. Skin: No rashes, No breakdown Lymphatic: No Cervical, Supraclavicular, or Inguinal Adenopathy Neurological: Cranial nerves II-XII grossly intact, Motor Exam 5/5 strength throughout, - - Minimal dysarthria. Psych/Mental Status: Normal Affect, Appropriate, Alert and oriented to time, place, person, mood and affect Vital Signs Temp Pulse Resp BP Pulse Ox 98.9 F 119 H 29 H 116/55 L 95 06/05/19 13:00 06/05/19 13:00 06/05/19 13:00 06/05/19 13:00 06/05/19 13:00 Oxygen Delivery Method Room Air Weight: 218 lb 11.177 oz Body Mass Index (BMI) 32.3 Intake and Output for Last 24 Hours 06/03/19 06/04/19 06/05/19 23:59 23:59 23:59 Intake Total 1050 / 1050 Balance 1050 / 1050 Laboratory Tests Past 24 Hrs 06/05/19 06/05/19 06/05/19 10:20 10:20 10:20 WBC 15.4 H RBC 5.34 Hgb 16.7 H Hct 50.5 MCV 94.6 H MCH 31.3 MCHC 33.1 RDW Std Deviation 42.8 RDW Coeff of Brianna 12.4 Plt Count 126 L MPV 9.7 Immature Gran % (Auto) 1.200 H Neut % (Auto) 93.6 H Lymph % (Auto) 1.7 L [place] % (Auto) 2.5 Eos % (Auto) 0.7 Baso % (Auto) 0.3 Absolute Neuts (auto) 14.4 H Absolute Lymphs (auto) 0.26 L Nucleated RBC % 0.1 Differential Comment SCANNED PT 26.1 H INR 2.4 APTT 33.5 Sodium 138 Potassium 4.2 Chloride 101 Carbon Dioxide 22.0 Anion Gap 15 BUN 16 Creatinine 2.40 H Estim Creat Clear Calc 36.00 Est GFR (MDRD) Af Amer 37 L Est GFR (MDRD) Non-Af 30 L BUN/Creatinine Ratio 6.7 L Glucose 98 Lactic Acid Calcium 8.7 Total Bilirubin 0.70 AST 31 ALT 43 Alkaline Phosphatase 92 Total Protein 7.7 Albumin 3.6 Globulin 4.1 Albumin/Globulin Ratio 0.9 Urine Color Urine Clarity Urine pH Ur Specific [place] Urine Protein Urine Glucose (UA) Urine Ketones Urine Occult Blood Urine Nitrite Urine Bilirubin Urine Urobilinogen Ur Leukocyte Esterase Urine RBC Urine WBC Ur Squamous Epith Cells Urine Bacteria Urine Mucus 06/05/19 06/05/19 10:20 12:20 WBC RBC Hgb Hct MCV MCH MCHC RDW Std Deviation RDW Coeff of Brianna Plt Count MPV Immature Gran % (Auto) Neut % (Auto) Lymph % (Auto) [place] % (Auto) Eos % (Auto) Baso % (Auto) Absolute Neuts (auto) Absolute Lymphs (auto) Nucleated RBC % Differential Comment PT INR APTT Sodium Potassium Chloride Carbon Dioxide Anion Gap BUN Creatinine Estim Creat Clear Calc Est GFR (MDRD) Af Amer Est GFR (MDRD) Non-Af BUN/Creatinine Ratio Glucose Lactic Acid 5.7 H* Calcium Total Bilirubin AST ALT Alkaline Phosphatase Total Protein Albumin Globulin Albumin/Globulin Ratio Urine Color Yellow Urine Clarity Cloudy Urine pH 5.0 Ur Specific [place] 1.010 Urine Protein 30 H Urine Glucose (UA) Normal Urine Ketones Negative Urine Occult Blood 250 H Urine Nitrite Positive H Urine Bilirubin Negative Urine Urobilinogen Normal Ur Leukocyte Esterase 500 H Urine RBC 0 SEEN Urine WBC 25-50 SEEN Ur Squamous Epith Cells 0 SEEN Urine Bacteria 2+ Urine Mucus 0 SEEN Clinical Impression(s) from Imaging Studies Chest X-Ray 06/05/19 10:28 IMPRESSION: Hypoventilatory and mild atelectatic changes in the lung bases. Electronically Signed: Freddy Santillan MD at 11:10 EDT Tel , Service support , Assessment/Plan All Active Problems Acute complicated UTI (Acute) Acute kidney injury superimposed on CKD (Acute) Septic shock (Acute) This is a 53 years old male patient transferred from long term because of fever and tachycardia and he was found to have septic shock secondary to acute complicated UTI in the setting of chronic indwelling suprapubic catheter as well as acute kidney injury on top of stage III chronic kidney disease and he is being admitted for treatment. #1 septic shock: Secondary to acute complicated UTI in the setting of chronic suprapubic catheter. Patient has history of recurrent UTIs and bacteremia and he had urine culture that showed pseudomonas aeruginosa back on May,. His lactic acid is 5.7. He received a total of 3 L of bolus fluids. Blood pressure and heart rate improved. Plan: Admit to ICU, critical care monitoring, oblique bedrest, blood culture, urine culture, start IV Zosyn, repeat lactic acid in 3 hours, maintenance IV fluids at 125 cc/h, Tylenol as needed, critical care consult, repeat CBC and BMP tomorrow morning, PT OT evaluation and treatment. #2 BRET on stage III CKD: Creatinine is been fluctuating in the last couple of years, it has been around 1.4 mg/dL. Admission creatinine is 2.40, it was 1.42 August,. This is because of infection and septic shock. Plan: IV fluids as above, input output chart, repeat BMP tomorrow morning. #3 chronic indwelling suprapubic catheter: This was inserted after he had a stroke. It was changed today in the ED. Plan as above. #4 hypertension: Blood pressure was low upon arrival, improved with IV fluid bolus. Plan to continue IV fluids, resume metoprolol if blood pressure allows. #5 history of DVT: On Coumadin, INR is 2.4 which is therapeutic. Plan to continue Coumadin, recheck INR tomorrow morning. #6 history of CVA: With resultant minimal dysarthria, continue statins and Coumadin. #7 hyperlipidemia: Stable, continue statins. #8 DVT prophylaxis: On Coumadin, INR is 2.4. This note was generated with [employer] dictation software. It may contain incorrect words, spelling, and punctuation that were not noted in checking the note before signing. Code Visit Inpatient E&M: 14383 Init Hosp L3
[2019-06-05] MEDS: 0.9% Normal Saline 1,000 ML 125 ML IV ×2 (13:59→21:18)
[2019-06-05] MEDS: 0.9% NaCl IVPB Med Flush (250 mL) 15 ML IV (14:30)
[2019-06-05 14:32] LABS: Reflex Lactate? Y
[2019-06-05 15:31] LABS: Lactic Acid 5.9 mmol/L (0.4-2.0)
[2019-06-05 18:41] LABS: Lactic Acid 4.1 mmol/L (0.4-2.0)
[2019-06-05] MEDS: Atorvastatin Calcium 10 MG Tablet PO (21:16)
[2019-06-05 22:13] LABS: Reflex Lactate? Y
[2019-06-06] VITALS (24 sets, daily range): BP systolic 76–143; BP diastolic 58–100; PULSE 78–101; RESP 16–24; TEMP 36.7–38; O2SAT 95–99
[2019-06-06 04:18] LABS: Absolute Lymphocyte Count 0.89 X10^3/uL (0.83-4.51); Absolute Neutrophil Count 18.9 X10^3/uL (2.0-7.7); Basophil# 0.04 X10^3/uL; Basophil% 0.2 % (0-1); Eosinophil# 0.02 X10^3/uL; Eosinophils% 0.1 % (0-5); Hematocrit 41.3 % (40-54); Hemoglobin 13.4 g/dL (13.0-16.5); Lymphocyte # 0.89 X10^3/ul (4.0); Lymphocyte % 4.1 % (19-41); Mean Corp Hgb Conc 32.4 g/dL (32-36); Mean Corpuscular Hgb 31.2 pg (27.0-32.0); Mean Platelet Vol. 9.9 fl (6.2-12.0); Monocyte# 1.51 X10^3/uL; Monocyte% 6.9 % (0-10); NRBC Flagged by Analyzer 0 % (0-5); Neutrophil # 18.94 X10^3/uL (2.7-7.7); Neutrophil % 86.2 % (47-70); POSITIVE DIFFERENTIAL YES; Platelet Count 74 K/mm3 (150-450); RBC Distribution Width SD 45.8 fl (35.1-43.9); White Blood Count 21.9 K/mm3 (4.4-11.0)
[2019-06-06 04:30] LABS: Prothrombin Time (Protime)PT. 31.1 SECONDS (11.7-14.9)
[2019-06-06 04:33] LABS: Differential Indicated SCAN CRITERIA MET
[2019-06-06 04:34] LABS: Anion Gap 8 (5-15); BUN 23 mg/dL (7-18); BUN/Creat Ratio 13.5 RATIO (10-20); Calcium,Total 7.3 mg/dL (8.5-10.1); Chloride 114 mmol/L (98-107); EST Glomerular Filtration Rate 45 mL/min (>60); Est Glom Filt Rate - Afr Amer 55 mL/min (>60); Estimated Creatinine Clearance 50.83 ml/min; Glucose 108 mg/dL (74-106); Potassium 4.5 mmol/L (3.5-5.1); Sodium Level 146 mmol/L (136-145)
[2019-06-06] MEDS: 0.9% Normal Saline 1,000 ML 125 ML IV (05:18)
[2019-06-06 06:13] LABS: Differential Comment SCANNED
--- NOTE | 2019-06-06 06:40 | CON.PCM_ITS ---
Reason for Consult Date of Consultation: 06/06/19 Reason for Consultation: Septic shock History of Present Illness: The patient is a 53-year-old male, with a history as outlined below, who presented from his [facility] facility over concerns for generalized malaise, fever and tachycardia. In addition, the patient reports that he was experiencing some diarrhea and that his suprapubic catheter was malfunctioning. The patient reports having sustained a stroke 3 years ago, after which time, he required placement of a suprapubic catheter. The patient also has a history of lower extremity DVT, for which she is prescribed Coumadin on an outpatient basis. On presentation to the emergency department, the patient was noted to be febrile, tachycardic and tachypneic. Laboratory evaluation revealed an elevated white blood cell count of 15,000. INR was noted to be 2.4. Chemistry profile was notable for an elevated creatinine of 2.40. Lactate was elevated to 5.7. Urinalysis was positive for nitrites and leukocyte esterase. 25-50 white blood cells were identified along with 2+ urine bacteria. Plain film chest x-ray revealed no acute cardiopulmonary process. In the emergency department, the patient's suprapubic catheter was replaced. He received supplemental IV fluid hydration was started on broad-spectrum antimicrobial therapy. Last evening, the patient did require the initiation of vasopressor support to maintain hemodynamic stability. Levophed was infused from approximately 5 until 10 PM. Since that time, the patient has remained hemodynamically stable off of vasopressor support. He denies any specific complaints this morning. He reports no abdominal pain, nausea, vomiting, shortness of breath or cough. Past Medical History Past Medical History (Chronic Problems): Chronic Problems Suprapubic catheter (Chronic) Bladder dysfunction (Chronic) BPH (benign prostatic hyperplasia) (Chronic) History of DVT (deep vein thrombosis) (Chronic) CVA (cerebral vascular accident) (Chronic) HLD (hyperlipidemia) (Chronic) HTN (hypertension) (Chronic) Obesity (BMI 30.0-34.9) (Chronic) Allergies No Known Allergies Allergy (Verified 06/05/19 10:11) Home Medications: Ambulatory Orders Medication Instructions Recorded Acetaminophen 2 tab PO Q4H PRN PRN 04/29/17 Atorvastatin Calcium [Lipitor] 10 mg PO QHS 04/29/17 Cholecalciferol (Vitamin D3) 5,000 unit PO DAILY 04/29/17 [Vitamin D3] Guaifenesin [Guaifenesin ER] 600 mg PO BID 04/29/17 Loratadine 10 mg PO DAILY 04/29/17 Magnesium Hydroxide [Milk Of 30 ml PO DAILY PRN PRN 04/29/17 Magnesia] Metoprolol Tartrate 25 mg PO BID 04/29/17 Ondansetron [Zofran Odt] 4 mg PO Q8H PRN PRN 04/29/17 Warfarin [Coumadin] 2 mg PO SUMOTUTHFRSA 04/29/17 Docusate Sodium [Colace] 200 mg PO BID PRN PRN #1 capsule 05/05/17 Hydrocodone Bitart/Apap 5-325 1 tablet PO Q6H PRN PRN #10 05/05/17 [[place] 5/325] Albuterol Aerosols [Ventolin 2.5 mg INHALATION Q2H PRN PRN 06/03/17 Aerosols] Mag Hydrox/Aluminum Hyd/Simeth 30 ml PO Q4H PRN PRN 06/03/17 [Antacid Liquid] Mineral Oil/Petrolatum,White 1 applic TOPICAL QHS 06/05/19 [Eucerin] Warfarin [Coumadin (PBKC)] 3 mg PO WE 06/05/19 Surgical History: - - Interventions for renal stones, right inguinal hernia repair, suprapubic catheter. Psychiatric History: No pertinent psych hx Lives: Residential Smoking Status: Never smoker Alcohol: None Drugs: None - *Family History Maternal History Items: Cancer - Mother with breast cancer history. Paternal History Items: No pertinent history Review of Systems Constitutional: Reports: Fever, Malaise, Fatigue Eyes: Denies: Blurred vision, Double vision HEENT: Denies: Head Aches, Sinus Congestion, Sinus Drainage Cardiovascular: Denies: Chest Pain, Palpitations Respiratory: Denies: Cough, Shortness of breath at rest, Sputum production Gastrointestinal: Reports: Diarrhea. Denies: Abdominal Pain, Nausea, Vomiting Genitourinary: Reports: Dysuria, - - + Chronic suprapubic catheter Musculoskeletal: Denies: Joint Pain, Joint Tenderness Skin: Denies: Rash, Wounds Neurological: Denies: Numbness, Tingling, Focal weakness Psychiatric: Denies: Anxiety, Depression, Homicidal Ideations, Suicidal Ideations Hematologic/ Lymphatic: Reports: Hx of blood clot Patient Problems: Active and Suspected Problems Urinary catheter dysfunction (Acute) Acute complicated UTI (Acute) Acute kidney injury superimposed on CKD (Acute) Septic shock (Acute) Objective: The patient's most recent lab work, culture data and imaging studies have all been personally reviewed. Preliminary blood cultures were positive for a gram- negative guerrero. Urine cultures are pending. - Physical Exam General: Alert, Cooperative, No apparent distress HEENT: Atraumatic, PERRLA, Normocephalic Oral: No Gingival or Mucosal Lesions/ Ulcerations Neck: Supple, No Nodes, Trachea Midline Lungs: No rhonchi, No wheeze, No rales, Diminished Cardiovascular: Regular rate, Regular Rhythm, Normal S1, Normal S2, No murmurs Abdomen: Bowel Sounds Present, Soft, Non Tender, - - +Suprapubic catheter Extremities: No clubbing, No cyanosis, Edema Skin: - - LE Stasis dermatitis Musculoskeletal: No Muscle Wasting Lymphatic: No Cervical, Supraclavicular, or Inguinal Adenopathy Neurological: - - No focal deficits. Mild dysarthria noted. Vital Signs Temp Pulse Resp BP Pulse Ox 98.1 F 81 16 103/77 96 06/06/19 00:00 06/06/19 06:00 06/06/19 06:00 06/06/19 06:00 06/06/19 06:00 Oxygen Flow Rate (L/min) 2 Oxygen Delivery Method Room Air Weight: 221 lb 1.978 oz Body Mass Index (BMI) 31.7 Intake and Output for Last 24 Hours 06/04/19 06/05/19 06/06/19 23:59 23:59 23:59 Intake Total 3593.71 / 3593.71 1229.33 / 1229.33 Output Total 1900 / 1900 400 / 400 Balance 1693.71 / 1693.71 829.33 / 829.33 Microbiology Past 72 Hours 06/05/19 10:20 Blood Culture - Preliminary Blood Culture (Wb) - Right Wrist Laboratory Tests Past 24 Hrs 06/05/19 06/05/19 06/05/19 10:20 10:20 10:20 WBC 15.4 H RBC 5.34 Hgb 16.7 H Hct 50.5 MCV 94.6 H MCH 31.3 MCHC 33.1 RDW Std Deviation 42.8 RDW Coeff of Brianna 12.4 Plt Count 126 L MPV 9.7 Immature Gran % (Auto) 1.200 H Neut % (Auto) 93.6 H Lymph % (Auto) 1.7 L [place] % (Auto) 2.5 Eos % (Auto) 0.7 Baso % (Auto) 0.3 Absolute Neuts (auto) 14.4 H Absolute Lymphs (auto) 0.26 L Nucleated RBC % 0.1 Differential Comment SCANNED Diff Path Review PT 26.1 H INR 2.4 APTT 33.5 Sodium 138 Potassium 4.2 Chloride 101 Carbon Dioxide 22.0 Anion Gap 15 BUN 16 Creatinine 2.40 H Estim Creat Clear Calc 36.00 Est GFR (MDRD) Af Amer 37 L Est GFR (MDRD) Non-Af 30 L BUN/Creatinine Ratio 6.7 L Glucose 98 Lactic Acid Calcium 8.7 Total Bilirubin 0.70 AST 31 ALT 43 Alkaline Phosphatase 92 Total Protein 7.7 Albumin 3.6 Globulin 4.1 Albumin/Globulin Ratio 0.9 Urine Color Urine Clarity Urine pH Ur Specific [place] Urine Protein Urine Glucose (UA) Urine Ketones Urine Occult Blood Urine Nitrite Urine Bilirubin Urine Urobilinogen Ur Leukocyte Esterase Urine RBC Urine WBC Ur Squamous Epith Cells Urine Bacteria Urine Mucus 06/05/19 06/05/19 06/05/19 10:20 12:20 14:40 WBC RBC Hgb Hct MCV MCH MCHC RDW Std Deviation RDW Coeff of Brianna Plt Count MPV Immature Gran % (Auto) Neut % (Auto) Lymph % (Auto) [place] % (Auto) Eos % (Auto) Baso % (Auto) Absolute Neuts (auto) Absolute Lymphs (auto) Nucleated RBC % Differential Comment Diff Path Review PT INR APTT Sodium Potassium Chloride Carbon Dioxide Anion Gap BUN Creatinine Estim Creat Clear Calc Est GFR (MDRD) Af Amer Est GFR (MDRD) Non-Af BUN/Creatinine Ratio Glucose Lactic Acid 5.7 H* 5.9 H* Calcium Total Bilirubin AST ALT Alkaline Phosphatase Total Protein Albumin Globulin Albumin/Globulin Ratio Urine Color Yellow Urine Clarity Cloudy Urine pH 5.0 Ur Specific [place] 1.010 Urine Protein 30 H Urine Glucose (UA) Normal Urine Ketones Negative Urine Occult Blood 250 H Urine Nitrite Positive H Urine Bilirubin Negative Urine Urobilinogen Normal Ur Leukocyte Esterase 500 H Urine RBC 0 SEEN Urine WBC 25-50 SEEN Ur Squamous Epith Cells 0 SEEN Urine Bacteria 2+ Urine Mucus 0 SEEN 09/08/19 09/09/19 09/09/19 18:10 04:00 04:00 WBC 21.9 H RBC 4.30 L Hgb 13.4 Hct 41.3 MCV 96.0 H MCH 31.2 MCHC 32.4 RDW Std Deviation 45.8 H RDW Coeff of Brianna 13.0 Plt Count 74 L MPV 9.9 Immature Gran % (Auto) 2.500 H Neut % (Auto) 86.2 H Lymph % (Auto) 4.1 L [place] % (Auto) 6.9 Eos % (Auto) 0.1 Baso % (Auto) 0.2 Absolute Neuts (auto) 18.9 H Absolute Lymphs (auto) 0.89 Nucleated RBC % 0 Differential Comment SCANNED Diff Path Review January foll PT 31.1 H INR 3.0 APTT Sodium Potassium Chloride Carbon Dioxide Anion Gap BUN Creatinine Estim Creat Clear Calc Est GFR (MDRD) Af Amer Est GFR (MDRD) Non-Af BUN/Creatinine Ratio Glucose Lactic Acid 4.1 H* Calcium Total Bilirubin AST ALT Alkaline Phosphatase Total Protein Albumin Globulin Albumin/Globulin Ratio Urine Color Urine Clarity Urine pH Ur Specific [place] Urine Protein Urine Glucose (UA) Urine Ketones Urine Occult Blood Urine Nitrite Urine Bilirubin Urine Urobilinogen Ur Leukocyte Esterase Urine RBC Urine WBC Ur Squamous Epith Cells Urine Bacteria Urine Mucus 06/06/19 04:00 WBC RBC Hgb Hct MCV MCH MCHC RDW Std Deviation RDW Coeff of Brianna Plt Count MPV Immature Gran % (Auto) Neut % (Auto) Lymph % (Auto) [place] % (Auto) Eos % (Auto) Baso % (Auto) Absolute Neuts (auto) Absolute Lymphs (auto) Nucleated RBC % Differential Comment Diff Path Review PT INR APTT Sodium 146 H Potassium 4.5 Chloride 114 H Carbon Dioxide 24.0 Anion Gap 8 BUN 23 H Creatinine 1.70 H Estim Creat Clear Calc 50.83 Est GFR (MDRD) Af Amer 55 L Est GFR (MDRD) Non-Af 45 L BUN/Creatinine Ratio 13.5 Glucose 108 H Lactic Acid Calcium 7.3 L Total Bilirubin AST ALT Alkaline Phosphatase Total Protein Albumin Globulin Albumin/Globulin Ratio Urine Color Urine Clarity Urine pH Ur Specific [place] Urine Protein Urine Glucose (UA) Urine Ketones Urine Occult Blood Urine Nitrite Urine Bilirubin Urine Urobilinogen Ur Leukocyte Esterase Urine RBC Urine WBC Ur Squamous Epith Cells Urine Bacteria Urine Mucus Clinical Impression(s) from Imaging Studies Chest X-Ray 06/05/19 10:28 IMPRESSION: Hypoventilatory and mild atelectatic changes in the lung bases. Electronically Signed: Freddy Santillan MD at 11:10 EDT Tel , Service support , Assessment/Plan Active and Suspected Problems Urinary catheter dysfunction (Acute) Acute complicated UTI (Acute) Acute kidney injury superimposed on CKD (Acute) Septic shock (Acute) RECOMMENDATIONS: 1. Stop continuous supplemental IV fluids. 2. Continue broad-spectrum antimicrobial coverage. 3. Obtain repeat blood cultures today. 4. Continue Coumadin. 5. Continue appropriate ICU prophylaxis 6. Encourage incentive spirometer use and mobilize patient as tolerated. IMPRESSIONS: 1. Gram-negative septic shock The patient was identified as having gram-negative rods in both the urine and blood. The patient likely presented with a complicated urinary tract infection leading to bloodstream seeding. Although he did require vasopressor support for a short period of time, his hemodynamics have since stabilized. Recommend continuing empiric antimicrobial therapy, pending finalized culture results. Continue with supplemental IV fluids will be discontinued. The patient will be monitored in the ICU setting yet today to ensure stability in hemodynamics. Repeat blood cultures will also be collected. 2. Acute on chronic kidney disease Likely prerenal in etiology and related to hemodynamic instability in the setting of #1. Anticipate improvement with stabilization of hemodynamics. Continue to monitor urine output. No current indication for renal replacement therapy. 3. Personal history of lower extremity DVT/history of CVA/hypertension/hyperlipidemia Complicates care, management, recovery and prognosis. Continue Coumadin. Check INR daily. This note was generated with [employer] software. It may contain incorrect words, spelling, and punctuation that were not noted in checking the note before signing. Code Visit Inpatient E&M: 74703 Init Hosp L3
--- NOTE | 2019-06-06 09:02 | PCM.PN.HOSP ---
Patient Problems: Active and Suspected Problems Urinary catheter dysfunction (Acute) Acute complicated UTI (Acute) Acute kidney injury superimposed on CKD (Acute) Septic shock (Acute) Subjective: Patient seen and examined. He was admitted with a complaint of fever and tachycardia and had a fever of 102 Fahrenheit upon admission. He also complained of feeling sick and was mildly dizzy on admission. Patient had a chronic indwelling Stoddard catheter after he had a stroke and patient had been admitted for severe sepsis due to acute complicated UTI in the past. On admission, he was hypotensive, tachycardic and tachypneic and received 3 L of IV fluids. Suprapubic catheter was changed in the ED on account of it being blocked. He has been managed for septic shock due to acute complicated UTI and also BRET on CKD 3. He required pressors briefly overnight, from ~ 5pm to 10pm; BP stabilised, and pressors were discontinued. He has remained hemodynamically stable. Patient feels much better this morning. He denies any fever or chills, any chest pain, any dizziness, and palpitations, abdominal pain, any diarrhea vomiting. Review of systems otherwise negative. Labs and vitals reviewed. Temperature has trended down and was 98.3 Fahrenheit this morning. Lactic acid was 5.7 on admission and trended down to 4.1. Creatinine has trended up from 2.4-1.7 and sodium is 146 today. Chloride is also up at 114. White cell count is trended up to 21.9 from 15.4 on admission. Urine cultures pending and blood cultures grew gram-negative lactose specialty sales representative with speciation pending. Vitals/I&O's: Vital Signs Temp Pulse Resp BP Pulse Ox 98.3 F 81 16 103/77 96 06/06/19 08:58 06/06/19 06:00 06/06/19 06:00 06/06/19 06:00 06/06/19 06:00 Oxygen Flow Rate (L/min) 2 Oxygen Delivery Method Room Air Weight: 221 lb 1.978 oz Body Mass Index (BMI) 31.7 Intake and Output for Last 24 Hours 06/04/19 06/05/19 06/06/19 23:59 23:59 23:59 Intake Total 3593.71 / 3593.71 1229.33 / 1229.33 Output Total 1900 / 1900 400 / 400 Balance 1693.71 / 1693.71 829.33 / 829.33 General: Alert, Oriented x3, Cooperative, No apparent distress HEENT: Atraumatic, PERRLA, EOMI, Normocephalic Oral: Dry Mucosa Neck: Supple, No JVD, Negative Carotid Bruits Lungs: Clear to auscultation, Normal air movement, No rhonchi, No wheeze, No rales Cardiovascular: Regular rate, Regular Rhythm, Normal S1, Normal S2, No murmurs Abdomen: Bowel Sounds Present, Soft, Non Tender, Non-Distended, No Hepato-splenomegaly, - - Suprapubic catheter in place. Clean dressing around it with no evidence of any discharge. Extremities: No clubbing, No cyanosis, No edema, Capillary Refill Less than 3 Seconds Skin: No rashes, No breakdown Musculoskeletal: No Tenderness to Palpation of Joints or Extremities Lymphatic: No Cervical, Supraclavicular, or Inguinal Adenopathy Neurological: Cranial nerves II-XII grossly intact, Neuro grossly intact, Motor Exam 5/5 strength throughout Psych/Mental Status: Normal Affect, Appropriate, Alert and oriented to time, place, person, mood and affect Microbiology Past 72 Hours 06/05/19 10:20 Blood Culture (Wb) - Right Wrist Blood Culture - Preliminary GNR lactose specialty sales representative 06/05/19 10:51 Blood Culture (Wb) - Anticubital Left Blood Culture - Preliminary GNR lactose specialty sales representative Laboratory Results 06/05/19 10:20: WBC 15.4 H, RBC 5.34, Hgb 16.7 H, Hct 50.5, MCV 94.6 H, MCH 31.3, MCHC 33.1, RDW Std Deviation 42.8, RDW Coeff of Brianna 12.4, Plt Count 126 L, MPV 9.7, Immature Gran % (Auto) 1.200 H, Neut % (Auto) 93.6 H, Lymph % (Auto) 1.7 L, Josephine % (Auto) 2.5, Eos % (Auto) 0.7, Baso % (Auto) 0.3, Absolute Neuts (auto) 14.4 H, Absolute Lymphs (auto) 0.26 L, Nucleated RBC % 0.1, Differential Comment SCANNED 06/05/19 10:20: PT 26.1 H, INR 2.4, APTT 33.5 06/05/19 10:20: Sodium 138, Potassium 4.2, Chloride 101, Carbon Dioxide 22.0, Anion Gap 15, BUN 16, Creatinine 2.40 H, Estim Creat Clear Calc 36.00, Est GFR (MDRD) Af Amer 37 L, Est GFR (MDRD) Non-Af 30 L, BUN/Creatinine Ratio 6.7 L, Glucose 98, Calcium 8.7, Total Bilirubin 0.70, AST 31, ALT 43, Alkaline Phosphatase 92, Total Protein 7.7, Albumin 3.6, Globulin 4.1, Albumin/Globulin Ratio 0.9 06/05/19 10:20: Lactic Acid 5.7 H* 06/05/19 12:20: Urine Color Yellow, Urine Clarity Cloudy, Urine pH 5.0, Ur Specific [place] 1.010, Urine Protein 30 H, Urine Glucose (UA) Normal, Urine Ketones Negative, Urine Occult Blood 250 H, Urine Nitrite Positive H, Urine Bilirubin Negative, Urine Urobilinogen Normal, Ur Leukocyte Esterase 500 H, Urine RBC 0 SEEN, Urine WBC 25-50 SEEN, Ur Squamous Epith Cells 0 SEEN, Urine Bacteria 2+, Urine Mucus 0 SEEN 06/05/19 14:40: Lactic Acid 5.9 H* 06/05/19 18:10: Lactic Acid 4.1 H* 06/06/19 04:00: WBC 21.9 H, RBC 4.30 L, Hgb 13.4, Hct 41.3, MCV 96.0 H, MCH 31.2, MCHC 32.4, RDW Std Deviation 45.8 H, RDW Coeff of Brianna 13.0, Plt Count 74 L, MPV 9.9, Immature Gran % (Auto) 2.500 H, Neut % (Auto) 86.2 H, Lymph % (Auto) 4.1 L, Josephine % (Auto) 6.9, Eos % (Auto) 0.1, Baso % (Auto) 0.2, Absolute Neuts (auto) 18.9 H, Absolute Lymphs (auto) 0.89, Nucleated RBC % 0, Differential Comment SCANNED, Diff Path Review January06/06/19 04:00: PT 31.1 H, INR 3.0 06/06/19 04:00: Sodium 146 H, Potassium 4.5, Chloride 114 H, Carbon Dioxide 24.0, Anion Gap 8, BUN 23 H, Creatinine 1.70 H, Estim Creat Clear Calc 50.83, Est GFR (MDRD) Af Amer 55 L, Est GFR (MDRD) Non-Af 45 L, BUN/Creatinine Ratio 13.5, Glucose 108 H, Calcium 7.3 L Diagnostic Data Chest X-Ray 06/05/19 10:28 IMPRESSION: Hypoventilatory and mild atelectatic changes in the lung bases. Electronically Signed: Freddy Santillan MD at 11:10 EDT Tel , Service support , Current Medications Acetaminophen (Tylenol) 650 mg PO Q6H PRN PRN PRN Reason: Mild Pain (1-3)/Temp > 100.7 F Hydrocodone Bitart/Acetaminophen ([place] 5mg-325mg) 1 tablet PO Q6H PRN PRN PRN Reason: PAIN Albuterol Sulfate (Ventolin Aerosols) 2.5 mg INHALATION Q4H PRN PRN PRN Reason: Shortness of breath, wheezing Atorvastatin Calcium (Lipitor) 10 mg PO QHS [facility] Last Admin: 06/05/19 21:16 Dose: 10 mg Documented by: Docusate Sodium (Colace) 200 mg PO BID PRN PRN PRN Reason: Constipation Heparin Sodium (Beef Lung) () 50 units IV UD PRN PRN Reason: HEPARIN FLUSH Piperacillin Sod/Tazobactam (Sod 3.375 gm/ Sodium Chloride) 50 mls @ 12.5 mls/hr IV Q8 [facility] Last Infusion: 06/06/19 06:03 Dose: 12.5 mls/hr Documented by: Norepinephrine Bitartrate 8 mg (/ Sodium Chloride) 250 mls @ 9.375 mls/hr CONT INF .[id number] [facility]; Protocol Last Titration: 06/06/19 06:00 Dose: 0 mcg/min, 0 mls/hr Documented by: Sodium Chloride () 250 mls @ 15 mls/hr IV .[id number] PRN PRN Reason: SALINE FLUSH Last Infusion: 06/06/19 01:30 Dose: 0 mls/hr Documented by: Loratadine (Claritin) 10 mg PO DAILY [facility] Magnesium Hydroxide (Milk Of Magnesia) 30 ml PO DAILY PRN PRN PRN Reason: CONSTIPATION Metoprolol Tartrate (Lopressor (Beta Barbi)) 25 mg PO BID [facility] Last Admin: 06/05/19 21:09 Dose: Not Given Documented by: Ondansetron HCl (Zofran) 4 mg IV Q8H PRN PRN PRN Reason: NAUSEA/VOMITING Sodium Chloride () 10 - 40 ml IV UD PRN PRN Reason: SALINE FLUSH Sodium Chloride () 10 - 40 ml IV UD PRN PRN Reason: PICC FLUSH Warfarin Sodium (Coumadin (Pbkc)) 2 mg PO [id number] [facility] Last Admin: 06/05/19 17:52 Dose: 2 mg Documented by: Warfarin Sodium (Coumadin (Pbkc)) 3 mg PO We@1700 [facility] Medical Necessity - Tobacco Use Smoking Status: Never smoker Assessment/Plan All Active Problems Urinary catheter dysfunction (Acute) Acute complicated UTI (Acute) Acute kidney injury superimposed on CKD (Acute) Septic shock (Acute) 1. Septic shock due to UTI in setting of chronic suprapubic catheter temperature has trended down. He is now SIRS criteria 1/4 (leucocytosis) was hydrated with IVF, lactic acid trended down to 4.1 on IV cefepime now wbc trended up to 21.5, from 15 on admission. blood cultures x 2 grew GNR lactose specialty sales representative; urine culture pending stop IVF as BP has stabilised, patient is also getting hyperchloremic and hypernatremic stations superintendent on board 2. Lactic acidosis: due to septic shock. lactic acid trended down to 4.1; was 5.7 on admission. continue to monitor 3. BRET on CKD: Cr down to 1.7 from 2.4 on admission; baseline is ~ 1.4. continue monitoring. IVF stopped todayt o/a of hypernatremia and hyperchloremia 4. Hypertension: BP meds held on admission o/a of hypotension 5. History of DVT: INR was 2.4 on admssion. on coumadin. INR today is 3. 6. History of CVA: on statins. also on comadin. 7. Hyperlipidemia: on statins DVT prophylaxis: continue coumadin and monitor INR, for target INR of 2-3 Code Visit Inpatient E&M: 06658 [facility] Hosp L3
--- NOTE | 2019-06-06 09:54 | CASEMGMT ---
RN CM Note: participated in ICU interdisciplinary rounds. Pt remains on RA, continue on IV antibiotics. Plan is to remain in ICU for monitoring today, then possible transfer to PCU tomorrow. Pt is from Assisted Living. SW referral to assist with dc planning back to Assisted Living if appropriate for this LOC. Latrice CABRERAN RN ACM
[2019-06-06] MEDS: Loratadine 10 MG Tablet PO (10:07)
--- NOTE | 2019-06-06 10:40 | CASEMGMT ---
Patient is from [facility] (assisted living at [facility]). SW participated in interdisciplinary rounds and confirmed patient's plan is to return to [facility]. SW to follow. Plan: d/c back to [facility] when ready and as long as he continues to do well with therapy. Anna ARZATE MSW
[2019-06-06] MEDS: 0.9% NaCl Peripheral Flush Adult/Peds IV ×2 (13:48→20:57)
[2019-06-06] MEDS: Atorvastatin Calcium 10 MG Tablet PO (21:28)
[2019-06-07] VITALS (18 sets, daily range): BP systolic 117–149; BP diastolic 65–97; PULSE 75–113; RESP 14–20; TEMP 36.6–37.2; O2SAT 95–99
[2019-06-07] MEDS: Acetaminophen 325 MG Tablet 650 MG PO ×2 (04:42→15:43)
[2019-06-07] MEDS: 0.9% NaCl Peripheral Flush Adult/Peds IV (04:42)
[2019-06-07 04:44] LABS: Absolute Lymphocyte Count 1.05 X10^3/uL (0.83-4.51); Absolute Neutrophil Count 13.7 X10^3/uL (2.0-7.7); Basophil# 0.06 X10^3/uL; Basophil% 0.4 % (0-1); Eosinophil# 0.32 X10^3/uL; Eosinophils% 1.9 % (0-5); Hematocrit 42.6 % (40-54); Hemoglobin 14.1 g/dL (13.0-16.5); Lymphocyte # 1.05 X10^3/ul (4.0); Lymphocyte % 6.3 % (19-41); Mean Corp Hgb Conc 33.1 g/dL (32-36); Mean Corpuscular Hgb 31.2 pg (27.0-32.0); Mean Corpuscular Volume 94.2 fL (80-94); Mean Platelet Vol. 9.9 fl (6.2-12.0); Monocyte# 1.19 X10^3/uL; Monocyte% 7.2 % (0-10); NRBC Flagged by Analyzer 0 % (0-5); Neutrophil % 82.5 % (47-70); Platelet Count 69 K/mm3 (150-450); RBC Distribution Width SD 44.6 fl (35.1-43.9); Red Blood Count 4.52 M/mm3 (4.6-6.2); White Blood Count 16.6 K/mm3 (4.4-11.0)
[2019-06-07 05:06] LABS: Anion Gap 6 (5-15); BUN 19 mg/dL (7-18); BUN/Creat Ratio 12.8 RATIO (10-20); Chloride 112 mmol/L (98-107); Creatinine, Serum 1.49 mg/dL (0.70-1.30); EST Glomerular Filtration Rate 53 mL/min (>60); Est Glom Filt Rate - Afr Amer 64 mL/min (>60); Estimated Creatinine Clearance 57.99 ml/min; Glucose 85 mg/dL (74-106); Sodium Level 143 mmol/L (136-145)
--- NOTE | 2019-06-07 06:50 | PCM.PN.INT ---
Subjective: The patient was seen and examined at the bedside this morning. Events from the last 24 hours have been reviewed. The patient is currently afebrile, hemodynamically stable and maintaining appropriate oxygen saturations on room air. The patient is currently sitting in his bedside recliner. He did report the presence of a headache last evening, which has resolved this morning. He reports no shortness of breath, chest pain or abdominal pain. Creatinine has improved this morning to 1.49. The patient is currently documented to be overall net +1.8 L for the admission. Objective: The patient's most recent lab work, culture data and imaging studies have all been personally reviewed. Urine culture was positive for presumptive E. coli. Blood culture was also positive for gram-negative guerrero. General: Alert, Cooperative, No apparent distress, - - Sitting in bedside recliner. HEENT: Atraumatic, PERRLA, Normocephalic Oral: No Gingival or Mucosal Lesions/ Ulcerations Neck: Supple, No Nodes, Trachea Midline Lungs: No rhonchi, No wheeze, No rales, Diminished Cardiovascular: Regular rate, Regular Rhythm, Normal S1, Normal S2, No murmurs Abdomen: Bowel Sounds Present, Soft, Non Tender, Obese, - - Suprapubic catheter in place Extremities: No clubbing, No cyanosis Skin: - - Lower extremity stasis dermatitis Musculoskeletal: No Muscle Wasting Lymphatic: No Cervical, Supraclavicular, or Inguinal Adenopathy Neurological: Neuro grossly intact Psych/Mental Status: Normal Affect, Appropriate Vital Signs Temp Pulse Resp BP Pulse Ox 98.9 F 81 16 141/92 H 97 06/07/19 04:00 06/07/19 06:00 06/07/19 06:00 06/07/19 06:00 06/07/19 06:00 Oxygen Flow Rate (L/min) 2 Oxygen Delivery Method Room Air Weight: 220 lb 3.869 oz Body Mass Index (BMI) 31.7 Intake and Output for Last 24 Hours 06/05/19 06/06/19 06/07/19 23:59 23:59 23:59 Intake Total 3593.71 / 3593.71 1347.62 / 2579.29 1273.50 / 1273.50 Output Total 1900 / 1900 1925 / 2525 600 / 600 Balance 1693.71 / 1693.71 -577.38 / 54.29 673.50 / 673.50 Labs (Last 48 Hours) 06/05/19 06/05/19 06/05/19 10:20 10:20 10:20 WBC 15.4 H RBC 5.34 Hgb 16.7 H Hct 50.5 MCV 94.6 H MCH 31.3 MCHC 33.1 RDW Std Deviation 42.8 RDW Coeff of Brianna 12.4 Plt Count 126 L MPV 9.7 Immature Gran % (Auto) 1.200 H Neut % (Auto) 93.6 H Lymph % (Auto) 1.7 L [place] % (Auto) 2.5 Eos % (Auto) 0.7 Baso % (Auto) 0.3 Absolute Neuts (auto) 14.4 H Absolute Lymphs (auto) 0.26 L Nucleated RBC % 0.1 Differential Comment SCANNED Diff Path Review PT 26.1 H INR 2.4 APTT 33.5 Sodium 138 Potassium 4.2 Chloride 101 Carbon Dioxide 22.0 Anion Gap 15 BUN 16 Creatinine 2.40 H Estim Creat Clear Calc 36.00 Est GFR (MDRD) Af Amer 37 L Est GFR (MDRD) Non-Af 30 L BUN/Creatinine Ratio 6.7 L Glucose 98 Lactic Acid Calcium 8.7 Total Bilirubin 0.70 AST 31 ALT 43 Alkaline Phosphatase 92 Total Protein 7.7 Albumin 3.6 Globulin 4.1 Albumin/Globulin Ratio 0.9 Urine Color Urine Clarity Urine pH Ur Specific [place] Urine Protein Urine Glucose (UA) Urine Ketones Urine Occult Blood Urine Nitrite Urine Bilirubin Urine Urobilinogen Ur Leukocyte Esterase Urine RBC Urine WBC Ur Squamous Epith Cells Urine Bacteria Urine Mucus 06/05/19 06/05/19 06/05/19 10:20 12:20 14:40 WBC RBC Hgb Hct MCV MCH MCHC RDW Std Deviation RDW Coeff of Brianna Plt Count MPV Immature Gran % (Auto) Neut % (Auto) Lymph % (Auto) [place] % (Auto) Eos % (Auto) Baso % (Auto) Absolute Neuts (auto) Absolute Lymphs (auto) Nucleated RBC % Differential Comment Diff Path Review PT INR APTT Sodium Potassium Chloride Carbon Dioxide Anion Gap BUN Creatinine Estim Creat Clear Calc Est GFR (MDRD) Af Amer Est GFR (MDRD) Non-Af BUN/Creatinine Ratio Glucose Lactic Acid 5.7 H* 5.9 H* Calcium Total Bilirubin AST ALT Alkaline Phosphatase Total Protein Albumin Globulin Albumin/Globulin Ratio Urine Color Yellow Urine Clarity Cloudy Urine pH 5.0 Ur Specific [place] 1.010 Urine Protein 30 H Urine Glucose (UA) Normal Urine Ketones Negative Urine Occult Blood 250 H Urine Nitrite Positive H Urine Bilirubin Negative Urine Urobilinogen Normal Ur Leukocyte Esterase 500 H Urine RBC 0 SEEN Urine WBC 25-50 SEEN Ur Squamous Epith Cells 0 SEEN Urine Bacteria 2+ Urine Mucus 0 SEEN 06/05/19 06/06/19 06/06/19 18:10 04:00 04:00 WBC 21.9 H RBC 4.30 L Hgb 13.4 Hct 41.3 MCV 96.0 H MCH 31.2 MCHC 32.4 RDW Std Deviation 45.8 H RDW Coeff of Brianna 13.0 Plt Count 74 L MPV 9.9 Immature Gran % (Auto) 2.500 H Neut % (Auto) 86.2 H Lymph % (Auto) 4.1 L [place] % (Auto) 6.9 Eos % (Auto) 0.1 Baso % (Auto) 0.2 Absolute Neuts (auto) 18.9 H Absolute Lymphs (auto) 0.89 Nucleated RBC % 0 Differential Comment SCANNED Diff Path Review January foll PT 31.1 H INR 3.0 APTT Sodium Potassium Chloride Carbon Dioxide Anion Gap BUN Creatinine Estim Creat Clear Calc Est GFR (MDRD) Af Amer Est GFR (MDRD) Non-Af BUN/Creatinine Ratio Glucose Lactic Acid 4.1 H* Calcium Total Bilirubin AST ALT Alkaline Phosphatase Total Protein Albumin Globulin Albumin/Globulin Ratio Urine Color Urine Clarity Urine pH Ur Specific [place] Urine Protein Urine Glucose (UA) Urine Ketones Urine Occult Blood Urine Nitrite Urine Bilirubin Urine Urobilinogen Ur Leukocyte Esterase Urine RBC Urine WBC Ur Squamous Epith Cells Urine Bacteria Urine Mucus 06/06/19 06/07/19 06/07/19 04:00 04:40 04:40 WBC 16.6 H RBC 4.52 L Hgb 14.1 Hct 42.6 MCV 94.2 H MCH 31.2 MCHC 33.1 RDW Std Deviation 44.6 H RDW Coeff of Brianna 13.0 Plt Count 69 L MPV 9.9 Immature Gran % (Auto) 1.700 H Neut % (Auto) 82.5 H Lymph % (Auto) 6.3 L [place] % (Auto) 7.2 Eos % (Auto) 1.9 Baso % (Auto) 0.4 Absolute Neuts (auto) 13.7 H Absolute Lymphs (auto) 1.05 Nucleated RBC % 0 Differential Comment Diff Path Review PT INR APTT Sodium 146 H 143 Potassium 4.5 4.0 Chloride 114 H 112 H Carbon Dioxide 24.0 25.0 Anion Gap 8 6 BUN 23 H 19 H Creatinine 1.70 H 1.49 H Estim Creat Clear Calc 50.83 57.99 Est GFR (MDRD) Af Amer 55 L 64 Est GFR (MDRD) Non-Af 45 L 53 L BUN/Creatinine Ratio 13.5 12.8 Glucose 108 H 85 Lactic Acid Calcium 7.3 L 8.0 L Total Bilirubin AST ALT Alkaline Phosphatase Total Protein Albumin Globulin Albumin/Globulin Ratio Urine Color Urine Clarity Urine pH Ur Specific [place] Urine Protein Urine Glucose (UA) Urine Ketones Urine Occult Blood Urine Nitrite Urine Bilirubin Urine Urobilinogen Ur Leukocyte Esterase Urine RBC Urine WBC Ur Squamous Epith Cells Urine Bacteria Urine Mucus Microbiology 06/05/19 12:20 Suprapubic Tap Urine Culture - Preliminary Presumptive E. coli Gram positive organism 06/05/19 10:20 Blood Culture (Wb) - Right Wrist Blood Culture - Preliminary GNR lactose well digger 06/05/19 10:51 Blood Culture (Wb) - Anticubital Left Blood Culture - Preliminary GNR lactose well digger Clinical Impression(s) from Imaging Studies Chest X-Ray 06/05/19 10:28 IMPRESSION: Hypoventilatory and mild atelectatic changes in the lung bases. Electronically Signed: Freddy Santillan MD at 11:10 EDT Tel , Service support , Medical Necessity - Tobacco Use Smoking Status: Never smoker Assessment/Plan All Active Problems Urinary catheter dysfunction (Acute) Acute complicated UTI (Acute) Acute kidney injury superimposed on CKD (Acute) Septic shock (Acute) RECOMMENDATIONS: 1. Continue broad-spectrum antimicrobial coverage. Plan for antibiotic de-escalation once sensitivities are known. 2. Continue Coumadin. 3. Continue appropriate ICU prophylaxis 4. Encourage incentive spirometer use and mobilize patient as tolerated. IMPRESSIONS: 1. Gram-negative septic shock Resolved. The patient was identified as having gram-negative rods in both the urine and blood, likely E. coli. The patient likely presented with a complicated urinary tract infection leading to bloodstream seeding. Although he did require vasopressor support for a short period of time, his hemodynamics have since stabilized. Recommend continuing empiric antimicrobial therapy, pending finalized culture results. Plan for antibiotic de-escalation once sensitivities are known. 2. Acute on chronic kidney disease Improved. Likely prerenal in etiology and related to hemodynamic instability in the setting of #1. Anticipate further improvement with stabilization of hemodynamics. Continue to monitor urine output. No current indication for renal replacement therapy. 3. Personal history of lower extremity DVT/history of CVA/hypertension/hyperlipidemia Complicates care, management, recovery and prognosis. Continue Coumadin. Check INR daily. This note was generated with [email or web address] dictation software. It may contain incorrect words, spelling, and punctuation that were not noted in checking the note before signing. DISPOSITION: The patient is medically stable for transfer out of the intensive care unit. Code Visit Inpatient E&M: 10463 Subs Hosp L2
--- NOTE | 2019-06-07 08:54 | PCM.PN.HOSP ---
Patient Problems: Active and Suspected Problems Urinary catheter dysfunction (Acute) Acute complicated UTI (Acute) Acute kidney injury superimposed on CKD (Acute) Septic shock (Acute) Subjective: Patient seen and examined. He has no complaints and feels well. REview of systems is otherwise negative. Labs and vitals reviewed. White cell count is trended down to 16.6. He has remained afebrile. Creatinine is also trended down to 1.49 today. Vitals/I&O's: Vital Signs Temp Pulse Resp BP Pulse Ox 97.9 F 75 14 130/90 H 98 06/07/19 07:00 06/07/19 08:00 06/07/19 08:00 06/07/19 08:00 06/07/19 08:00 Oxygen Flow Rate (L/min) 2 Oxygen Delivery Method Room Air Weight: 220 lb 3.869 oz Body Mass Index (BMI) 31.7 Intake and Output for Last 24 Hours 06/05/19 06/06/19 06/07/19 23:59 23:59 23:59 Intake Total 3593.71 / 3593.71 1347.62 / 2579.29 1273.50 / 1273.50 Output Total 1900 / 1900 1925 / 2525 600 / 600 Balance 1693.71 / 1693.71 -577.38 / 54.29 673.50 / 673.50 General: Alert, Oriented x3, Cooperative, No apparent distress HEENT: Atraumatic, PERRLA, EOMI, Normocephalic Oral: Dry Mucosa Neck: Supple, No JVD, Negative Carotid Bruits Lungs: Clear to auscultation, Normal air movement, No rhonchi, No wheeze, No rales Cardiovascular: Regular rate, Regular Rhythm, Normal S1, Normal S2, No murmurs Abdomen: Bowel Sounds Present, Soft, Non Tender, Non-Distended, No Hepato-splenomegaly, - - Suprapubic catheter in place. Clean dressing around it with no evidence of any discharge. 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 coli Gram positive organism 06/05/19 10:20 Blood Culture (Wb) - Right Wrist Blood Culture - Preliminary Escherichia coli Laboratory Results 06/07/19 04:40: WBC 16.6 H, RBC 4.52 L, Hgb 14.1, Hct 42.6, MCV 94.2 H, MCH 31.2, MCHC 33.1, RDW Std Deviation 44.6 H, RDW Coeff of Brianna 13.0, Plt Count 69 L, MPV 9.9, Immature Gran % (Auto) 1.700 H, Neut % (Auto) 82.5 H, Lymph % (Auto) 6.3 L, [place] % (Auto) 7.2, Eos % (Auto) 1.9, Baso % (Auto) 0.4, Absolute Neuts (auto) 13.7 H, Absolute Lymphs (auto) 1.05, Nucleated RBC % 0 06/07/19 04:40: Sodium 143, Potassium 4.0, Chloride 112 H, Carbon Dioxide 25.0, Anion Gap 6, BUN 19 H, Creatinine 1.49 H, Estim Creat Clear Calc 57.99, Est GFR (MDRD) Af Amer 64, Est GFR (MDRD) Non-Af 53 L, BUN/Creatinine Ratio 12.8, Glucose 85, Calcium 8.0 L Diagnostic Data Chest X-Ray 06/05/19 10:28 IMPRESSION: Hypoventilatory and mild atelectatic changes in the lung bases. Electronically Signed: Freddy Santillan MD at 11:10 EDT Tel , Service support , Current Medications Acetaminophen (Tylenol) 650 mg PO Q6H PRN PRN PRN Reason: Mild Pain (1-3)/Temp > 100.7 F Last Admin: 06/07/19 04:42 Dose: 650 mg Documented by: Hydrocodone Bitart/Acetaminophen (Hope 5mg-325mg) 1 tablet PO Q6H PRN PRN PRN Reason: PAIN Albuterol Sulfate (Ventolin Aerosols) 2.5 mg INHALATION Q4H PRN PRN PRN Reason: Shortness of breath, wheezing Atorvastatin Calcium (Lipitor) 10 mg PO QHS [facility] Last Admin: 06/06/19 21:28 Dose: 10 mg Documented by: Docusate Sodium (Colace) 200 mg PO BID PRN PRN PRN Reason: Constipation Heparin Sodium (Beef Lung) () 50 units IV UD PRN PRN Reason: HEPARIN FLUSH Piperacillin Sod/Tazobactam (Sod 3.375 gm/ Sodium Chloride) 50 mls @ 12.5 mls/hr IV Q8 [facility] Last Admin: 06/07/19 05:52 Dose: 12.5 mls/hr Documented by: Sodium Chloride () 250 mls @ 15 mls/hr IV .[id number] PRN PRN Reason: SALINE FLUSH Last Infusion: 06/07/19 03:02 Dose: 0 mls/hr Documented by: Loratadine (Claritin) 10 mg PO DAILY [facility] Last Admin: 06/06/19 10:07 Dose: 10 mg Documented by: Magnesium Hydroxide (Milk Of Magnesia) 30 ml PO DAILY PRN PRN PRN Reason: CONSTIPATION Ondansetron HCl (Zofran) 4 mg IV Q8H PRN PRN PRN Reason: NAUSEA/VOMITING Sodium Chloride () 10 - 40 ml IV UD PRN PRN Reason: SALINE FLUSH Last Admin: 06/07/19 04:42 Dose: 20 ml Documented by: Sodium Chloride () 10 - 40 ml IV UD PRN PRN Reason: PICC FLUSH Warfarin Sodium (Coumadin (Pbkc)) 2 mg PO [id number]@1700 [facility] Last Admin: 06/06/19 17:55 Dose: 2 mg Documented by: Warfarin Sodium (Coumadin (Pbkc)) 3 mg PO We@1700 [facility] Medical Necessity - Tobacco Use Smoking Status: Never smoker Assessment/Plan All Active Problems Urinary catheter dysfunction (Acute) Acute complicated UTI (Acute) Acute kidney injury superimposed on CKD (Acute) Septic shock (Acute) 1. Gram negative Septic shock due to UTI in setting of chronic suprapubic catheter Resolved. He is now SIRS criteria 1/4 (leucocytosis) WBC down to 16.6. He has remained afebrile. Urine culture grew presumptive E. coli and gram-positive organisms. Preliminary blood culture growing E. coli. Repeat blood cultures pending. Currently on IV Zosyn. 2. E coli bacteremia: as under 1. 3. Lactic acidosis: due to septic shock. Resolved. 4. BRET on CKD: Cr down to 1.49 from 2.4 on admission; baseline is around 1.4. 5. Hypertension: BP meds held on admission o/a of hypotension. Blood pressure is 113/90 today. Will maintain off of blood pressure medications and monitor. 6. History of DVT: on coumadin. INR has remained therapeutic. Goal INR is 2-3 7. History of CVA: on statins. also on comadin. 8. Hyperlipidemia: on statins DVT prophylaxis: continue coumadin and monitor INR, for target INR of 2-3. INR today is pending. DIsposition: transfer to [facility] today. Code Visit Inpatient E&M: 11463 Subs Hosp L2
[2019-06-07 09:56] LABS: International Normalized Ratio 1.9; Prothrombin Time (Protime)PT. 21.3 SECONDS (11.7-14.9)
[2019-06-07] MEDS: Loratadine 10 MG Tablet PO (10:02)
[2019-06-07 12:20] LABS: Pathologist Review Reviewed
--- NOTE | 2019-06-07 15:11 | CASEMGMT ---
Social Work Note Pt is transfer from ICU. VERÓNICA spoke with Jerel HOUSE who states pt is from [facility] and will be returning there at discharge. SW faxed updated clinicals to [facility]. Plan: Return to [facility] once medically cleared Kari Gonzalez [employer], [employer]
[2019-06-07] MEDS: Atorvastatin Calcium 10 MG Tablet PO (21:29)
[2019-06-07] MEDS: 0.9% NaCl IVPB Med Flush (250 mL) 15 ML IV (21:31)
[2019-06-08 01:56] VITALS: BP 151/102; PULSE 80; RESP 16; TEMP 36.8; O2SAT 97
[2019-06-08 03:59] VITALS: PULSE 74
[2019-06-08] MEDS: 0.9% NaCl Peripheral Flush Adult/Peds IV (05:59)
[2019-06-08 06:21] LABS: Absolute Lymphocyte Count 1.23 X10^3/uL (0.83-4.51); Absolute Neutrophil Count 8.2 X10^3/uL (2.0-7.7); Basophil# 0.07 X10^3/uL; Basophil% 0.7 % (0-1); Eosinophil# 0.33 X10^3/uL; Eosinophils% 3.1 % (0-5); Hematocrit 45.9 % (40-54); Hemoglobin 15.1 g/dL (13.0-16.5); Lymphocyte # 1.23 X10^3/ul (4.0); Lymphocyte % 11.5 % (19-41); Mean Corp Hgb Conc 32.9 g/dL (32-36); Mean Corpuscular Hgb 31.1 pg (27.0-32.0); Mean Corpuscular Volume 94.6 fL (80-94); Mean Platelet Vol. 10.7 fl (6.2-12.0); Monocyte# 0.69 X10^3/uL; Monocyte% 6.5 % (0-10); NRBC Flagged by Analyzer 0 % (0-5); Neutrophil # 8.19 X10^3/uL (2.7-7.7); Neutrophil % 76.8 % (47-70); Platelet Count 82 K/mm3 (150-450); RBC Distribution Width CV 12.8 % (11.6-14.6); RBC Distribution Width SD 44.1 fl (35.1-43.9); Red Blood Count 4.85 M/mm3 (4.6-6.2); White Blood Count 10.7 K/mm3 (4.4-11.0)
[2019-06-08 06:32] LABS: Anion Gap 4 (5-15); BUN 13 mg/dL (7-18); BUN/Creat Ratio 9.2 RATIO (10-20); Calcium,Total 8.4 mg/dL (8.5-10.1); Chloride 112 mmol/L (98-107); Creatinine, Serum 1.41 mg/dL (0.70-1.30); EST Glomerular Filtration Rate 56 mL/min (>60); Est Glom Filt Rate - Afr Amer 68 mL/min (>60); Estimated Creatinine Clearance 61.28 ml/min; Glucose 90 mg/dL (74-106); Potassium 3.8 mmol/L (3.5-5.1); Sodium Level 142 mmol/L (136-145)
[2019-06-08 07:32] VITALS: BP 139/94; PULSE 84; RESP 18; TEMP 36.9; O2SAT 98
[2019-06-08] MEDS: Loratadine 10 MG Tablet PO (08:55)
[2019-06-08 09:03] VITALS: PULSE 88
--- NOTE | 2019-06-08 10:01 | PCM.TXEXTCAR ---
- Diet 06/05/19 13:43 Diet: Regular Diet Food consistency:: Regular Liquid Consistency:: Regular/Thin - Routine Orders/Code Status Enema Type: Fleetz Enema Frequency: Daily PRN Suppository Type: Dulcolax 10mg Suppository Frequency: Daily PRN - Therapies Weight Bearing: Full weight bearing Physical Therapy: Eval and Treat Occupational Therapy: Eval and Treat - Allergies/Procedures Done in Hospital Allergies/Adverse Reactions: Allergies No Known Allergies Allergy (Verified 06/05/19 10:11) Procedures: None - Type of Care/Length of Stay Estimated LOS: More Than 30 Days Type of Care Needed: Skilled Rehab Potential: Good Prognosis: Good - Additional Orders/Day of Discharge Additional Orders: please change Stoddard catheter once a month to prevent urine infections Day of Discharge: 06/08/19 - Dietary and Speech Recommendations Dietitian Recommendations/Changes: Rec diet change to Cardiac / low sodium d/t pmhx. Will provide chocolate ensure enlive w/ meals per his request - Follow Up Care Primary Care Physician: Vasiliy Ramos MD [Primary Care Provider] - Please follow up with your Primary Care Physician in: one week Please Follow Up With: Tyrese Mott MD When: 1-2 weeks; call office to set up an appointment
--- NOTE | 2019-06-08 10:03 | PCM.DC.SUM ---
Discharge Date and Diagnosis Date of Admission: 06/05/19 Date of Discharge: 06/08/19 - Primary Discharge Diagnosis Active and Suspected Problems Urinary catheter dysfunction (Acute) Acute complicated UTI (Acute) Acute kidney injury superimposed on CKD (Acute) Septic shock (Acute) - Secondary Discharge Diagnosis Chronic Problems Suprapubic catheter (Chronic) Bladder dysfunction (Chronic) BPH (benign prostatic hyperplasia) (Chronic) History of DVT (deep vein thrombosis) (Chronic) CVA (cerebral vascular accident) (Chronic) HLD (hyperlipidemia) (Chronic) HTN (hypertension) (Chronic) Obesity (BMI 30.0-34.9) (Chronic) Hospital Course and Treatment Imaging Results: Diagnostic Data Chest X-Ray 06/05/19 10:28 IMPRESSION: Hypoventilatory and mild atelectatic changes in the lung bases. Electronically Signed: Freddy Santillan MD at 11:10 EDT Tel , Service support , critical care- Dr Feliberto Burris Operations: None Procedures: None Summary of Care Provided: The patient is a 53 year old M with a PMH as listed. He was admitted via the ED on 06/05/19 with a complaint of fever and tachycardia. He was found to have a fever of 102F in his SNF. He had no associated nausea, vomiting or abdominal pain. He has a chronic indwelling Stoddard catheter and had been previously admitted for sepsis due to UTI in May 2017. He was found to be tachycardic, tachypneic and hypotensive. LAbs showed leucocytosis, wtih elevated Cr of 2.4. UA showed cloudy urine, positive for nitrite and leucocyte esterase and there were 25-50 wncs and 2+ bacteria. Chest x-ray showed no acute infiltrate or consolidation. He was admitted to manage for septic shock due to complicated UTI in the setting of chronic indwelling suprapubic catheter. He was also managed for BRET on CKD 3. He was hydrated with IV fluids per sepsis protocol and he became hemodynamically stable, though he did require pressors briefly. Lactic acid was 5.7 on admission and trended down with hydration to 4.1. He was started on IV Zosyn. White cell count trended down from two 9.9 on admission to 10.7. Blood culture had E. coli and urine also cultured E. coli and possible Pseudomonas species as well as enterococcus. Repeat blood culture showed no growth after 48 hours. Patient remained stable and was transferred out of ICU. He was discharged on 06/08/2019 back to his assisted living facility with a prescription for p.o. ciprofloxacin for 5 days. He is to follow-up with his primary care doctor within 1 week. He was also referred to urology to take care of his chronic catheter as patient said he did not think it was being changed frequently enough. Still living facility to change catheter monthly to prevent recurrence of frequent infections. Patient seen and examined prior to discharge. He had no complaints and felt well. Review of systems otherwise negative. Labs and vitals reviewed. Home medication reviewed and reconciled. o/e: Vital Signs Height 5 ft 9 in Weight: 204 lb 2.369 oz Weight in Pounds 204.1 lbs Pulse Ox 98 Temperature 98.4 F Pulse Rate 88 Respiratory Rate 18 Blood Pressure [BP] 130/90 Blood Pressure 139/94 Blood Pressure Position [BP] Sitting Blood Pressure Position Sitting General: Alert, Oriented x3, Cooperative, No apparent distress HEENT: Atraumatic, PERRLA, EOMI, Normocephalic Oral: Dry Mucosa Neck: Supple, No JVD, Negative Carotid Bruits Lungs: Clear to auscultation, Normal air movement, No rhonchi, No wheeze, No rales Cardiovascular: Regular rate, Regular Rhythm, Normal S1, Normal S2, No murmurs Abdomen: Bowel Sounds Present, Soft, Non Tender, Non-Distended, No Hepato-splenomegaly, - - Suprapubic catheter in place. Clean dressing around it with no evidence of any discharge. Extremities: No clubbing, No cyanosis, No edema, Capillary Refill Less than 3 Seconds Skin: No rashes, No breakdown Musculoskeletal: No Tenderness to Palpation of Joints or Extremities Lymphatic: No Cervical, Supraclavicular, or Inguinal Adenopathy Neurological: Cranial nerves II-XII grossly intact, Neuro grossly intact, Motor Exam 5/5 strength throughout Psych/Mental Status: Normal Affect, Appropriate, Alert and oriented to time, place, person, mood and affect Plan as above - Physical Exam Vital Signs Temp Pulse Resp BP Pulse Ox 98.4 F 84 18 139/94 H 98 06/08/19 07:32 06/08/19 07:32 06/08/19 07:32 06/08/19 07:32 06/08/19 07:32 Oxygen Flow Rate (L/min) 2 Oxygen Delivery Method Room Air Weight: 204 lb 2.369 oz Body Mass Index (BMI) 31.7 Intake and Output for Last 24 Hours 06/06/19 06/07/19 06/08/19 23:59 23:59 23:59 Intake Total 1347.62 / 2579.29 2347.75 / 2647.75 617 / 617 Output Total 1925 / 2525 1175 / 1525 700 / 700 Balance -577.38 / 54.29 1172.75 / 1122.75 -83 / -83 Microbiology Past 72 Hours 06/05/19 10:20 Blood Culture - Preliminary Blood Culture (Wb) - Right Wrist Escherichia coli Gram negative guerrero 06/05/19 12:20 Urine Culture - Preliminary Suprapubic Tap Presumptive E. 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 Laboratory Tests Past 24 Hrs 06/06/19 06/07/19 06/08/19 04:00 09:20 05:55 WBC 10.7 RBC 4.85 Hgb 15.1 Hct 45.9 MCV 94.6 H MCH 31.1 MCHC 32.9 RDW Std Deviation 44.1 H RDW Coeff of Brianna 12.8 Plt Count 82 L MPV 10.7 Immature Gran % (Auto) 1.400 H Neut % (Auto) 76.8 H Lymph % (Auto) 11.5 L Reeves % (Auto) 6.5 Eos % (Auto) 3.1 Baso % (Auto) 0.7 Absolute Neuts (auto) 8.2 H Absolute Lymphs (auto) 1.23 Nucleated RBC % 0 Diff Path Review Reviewed PT 21.3 H INR 1.9 Sodium Potassium Chloride Carbon Dioxide Anion Gap BUN Creatinine Estim Creat Clear Calc Est GFR (MDRD) Af Amer Est GFR (MDRD) Non-Af BUN/Creatinine Ratio Glucose Calcium 06/08/19 05:55 WBC RBC Hgb Hct MCV MCH MCHC RDW Std Deviation RDW Coeff of Brianna Plt Count MPV Immature Gran % (Auto) Neut % (Auto) Lymph % (Auto) Reeves % (Auto) Eos % (Auto) Baso % (Auto) Absolute Neuts (auto) Absolute Lymphs (auto) Nucleated RBC % Diff Path Review PT INR Sodium 142 Potassium 3.8 Chloride 112 H Carbon Dioxide 26.0 Anion Gap 4 L BUN 13 Creatinine 1.41 H Estim Creat Clear Calc 61.28 Est GFR (MDRD) Af Amer 68 Est GFR (MDRD) Non-Af 56 L BUN/Creatinine Ratio 9.2 L Glucose 90 Calcium 8.4 L Discharge Diet: Low fat/ Low Cholesterol Discharge Activity: Return to Normal Activity Weight Bearing Status: Weight bearing as tolerated Call your doctor if you observe: Fever of 101 or Higher Home Medications: Medications to take at Discharge Acetaminophen 2 tab PO Q4H PRN PRN 04/29/17 Atorvastatin Calcium [Lipitor] 10 mg PO QHS 04/29/17 Cholecalciferol (Vitamin D3) [Vitamin D3] 5,000 unit PO DAILY 04/29/17 Guaifenesin [Guaifenesin ER] 600 mg PO BID 04/29/17 Loratadine 10 mg PO DAILY 04/29/17 Magnesium Hydroxide [Milk Of Magnesia] 30 ml PO DAILY PRN PRN 04/29/17 Metoprolol Tartrate 25 mg PO BID 04/29/17 Ondansetron [Zofran Odt] 4 mg PO Q8H PRN PRN 04/29/17 Warfarin [Coumadin] 2 mg PO SUMOTUTHFRSA 04/29/17 Docusate Sodium [Colace] 200 mg PO BID PRN PRN #1 capsule 05/05/17 Hydrocodone Bitart/Apap 5-325 [[place] 5/325] 1 tablet PO Q6H PRN PRN #10 05/05/17 Albuterol Aerosols [Ventolin Aerosols] 2.5 mg INHALATION Q2H PRN PRN 06/03/17 Mag Hydrox/Aluminum Hyd/Simeth [Antacid Liquid] 30 ml PO Q4H PRN PRN 06/03/17 Mineral Oil/Petrolatum,White [Eucerin] 1 applic TOPICAL QHS 06/05/19 Warfarin [Coumadin] 3 mg PO WE 06/05/19 Ciprofloxacin HCl 500 mg PO BID #10 tab 06/08/19 Following Prescrptions Were Given to Patient: Ciprofloxacin HCl 500 mg PO BID #10 tab Prescription Printed Primary Care Physician: Vasiliy Ramos MD [Primary Care Provider] - Please follow up with your Primary Care Physician in: one week Please Follow Up With: Tyrese Mott MD When: 1-2 weeks; call office to set up an appointment Disposition: Asstd Living/Non-Skill [facility] Minutes spent on discharge:: 35 Patient Condition:: Stable Medical Necessity - Tobacco Use Smoking Status: Never smoker Meaningful Use Info Meaningful Use Diagnoses (Choose all that apply): None applicable Code Visit Inpatient E&M: 93636 Disch Hosp
--- NOTE | 2019-06-08 11:27 | CASEMGMT ---
Social Work Note Pt is discharging back to [facility] today. VERÓNICA met with pt and introduced self and role at [facility]. Pt is alert and orientated x3. Pt confirms that he will be discharging back to [facility]. VERÓNICA asked pt about transportation. Pt states that [facility] should be able to transport him and that [facility] [place] today. SW informed pt that this worker will call [facility] to see if they are able to transport pt but if not this worker will have to see if a wheelchair van is able to transport pt. Pt states understanding. VERÓNICA placed a call to [facility] and spoke with Carline. VERÓNICA updated Carline that pt is being discharged today and asked if [facility] is able to transport pt. Carline states [facility] doesn't transport pt to and from the hospital. VERÓNICA placed a call to [facility] and arranged transportation via wheelchair van for 12:00pm. Transportation form completed and given to trade union secretary, copy on pt's chart. VERÓNICA faxed discharge summary to [facility] [place], medication list and wrote on fax cover sheet that pt is being picked up at 12:00pm. Plan: Pt to discharge back to [facility] today with [facility] transporting via wheelchair van at 12:00pm. Kari Gonzalez [employer]UID[employer] COUNSELOR, [employer]
[2019-06-08 12:00] VITALS: BP 139/94; PULSE 84; RESP 18; TEMP 36.9; O2SAT 98
== END 2019-06-08 12:05 | disposition intermediate care facility (04) | DRG 466 ==
LOC: ED 11:47 → ICU 13:30 → MS3 06-07 09:25
PROVIDERS: Internal Medicine Critical Care Medicine; Admitting Provider Hospitalist; Emergency Provider Emergency Medicine; Family Provider Family Medicine; PCP Family Medicine; Visit Provider Student in an Organized Health Care Education/Training Program
DX: T83.511A Infection and inflammatory reaction due to indwelling urethral catheter, initial encounter (principal); A41.51 Sepsis due to Escherichia coli [E. coli]; R65.21 Severe sepsis with septic shock; G62.9 Polyneuropathy, unspecified; Z79.01 Long term (current) use of anticoagulants; E78.5 Hyperlipidemia, unspecified; Z86.718 Personal history of other venous thrombosis and embolism; N17.9 Acute kidney failure, unspecified; N40.0 Benign prostatic hyperplasia without lower urinary tract symptoms; I69.322 Dysarthria following cerebral infarction; I63.9 Cerebral infarction, unspecified; I12.9 Hypertensive chronic kidney disease with stage 1 through stage 4 chronic kidney disease, or unspecified chronic kidney disease; N18.3 Chronic kidney disease, stage 3 (moderate); Z79.899 Other long term (current) drug therapy; Z68.32 Body mass index [BMI] 32.0-32.9, adult; E66.9 Obesity, unspecified; Z93.59 Other cystostomy status; Z87.440 Personal history of urinary (tract) infections; E87.2 Acidosis; E87.8 Other disorders of electrolyte and fluid balance, not elsewhere classified; E87.0 Hyperosmolality and hypernatremia
CPT/HCPCS: 36569; 71045; 80048; 80053; 81001; 83605; 85025; 85610; 85730; 87040; 87077; 87086; 87088; 87184; 87186; 93005; 97162; 97166; 97530; 99285; J7030; J7050; A4216